=== PATIENT | female | born 1940 | race Caucasian/White ===

== ENCOUNTER → 2016-10-24 | Outpatient (CLI) | payer MEDICARE ==
--- NOTE | 2016-10-25 11:46 | RAD ---
DATE: 10/24/2016 EXAM: DIGITAL SCREEN BILAT W/CAD HISTORY: Screening study. History of left breast cancer. COMPARISON: 10/07/2015 This study was interpreted with the benefit of Computerized Aided Detection (CAD). FINDINGS: Digital MLO and CC mammograms of both breasts were obtained. The breast parenchyma is composed of scattered fibroglandular densities which can obscure a lesion on mammography (breast density code B). Benign-appearing areas of scarring seen involving the left breast, unchanged. Calcifications are seen within both breasts. No spiculated mass is seen. No malignant appearing calcification or new area of architectural distortion is noted. Since the previous examination there has been no significant interval change. IMPRESSION: BI-RADS Category 2 benign findings. There is no mammographic evidence of malignancy. Routine yearly screening mammography is recommended for follow-up. BI-RADS CATEGORY: 2 BENIGN FINDING(S) RECOMMENDED FOLLOW-UP: 12M 12 MONTH FOLLOW-UP PQRS compliance statement: Patient information was entered into a reminder system with a target due date 10/24/2017 for the next mammogram. Mammography is a sensitive method for finding small breast cancers, but it does not detect them all and is not a substitute for careful clinical examination. A negative mammogram does not negate a clinically suspicious finding and should not result in delay in biopsying a clinically suspicious abnormality. "Our facility is accredited by the [employer] Mammography [employer]."
== END | disposition home or self-care (01) ==
LOC: MAMMO 10:31
PROVIDERS: ATTEND Internal Medicine Hematology & Oncology
DX: Z12.31 Encounter for screening mammogram for malignant neoplasm of breast (principal)
CPT/HCPCS: G0202; 77067

== ENCOUNTER → 2017-10-31 | Outpatient (CLI) | payer MEDICARE ==
--- NOTE | 2017-11-01 18:58 | RAD ---
DATE: 10/31/2017 EXAM: MAMMO FIDELIA SCREENING BILATERAL HISTORY: History of left breast cancer. routine screening evaluation. COMPARISON: 10/24/2016, 10/07/2015, 10/07/2014, 10/05/2013 Bilateral CC and MLO views of the breasts were performed. Bilateral breast tomosynthesis was performed in CC and MLO projections. This study was interpreted with the benefit of Computerized Aided Detection (CAD). The breast parenchyma shows scattered fibroglandular densities. Breast parenchyma level B. FINDINGS: Focal asymmetry with associated architectural distortion is seen at the inferior, slightly lateral right breast approximately 12 cm posterior to the nipple. Benign type calcifications are seen. No suspicious left breast masses, microcalcifications or architectural distortion is present to suggest malignancy in either breast. The visualized axillae are unremarkable. IMPRESSION: Right breast focal asymmetry with associated architectural distortion, findings for which additional imaging is advised. BI-RADS CATEGORY: 0 INCOMPLETE: NEEDS ADDITIONAL IMAGING EVALUATION AND/OR PRIOR MAMMOGRAMS FOR COMPARISON. RECOMMENDED FOLLOW-UP: ADD ADDITIONAL IMAGING The patient will be contacted to return for additional imaging to include spot compression CC and MLO views of the right breast as well as breast ultrasound and a supplemental report will follow. PQRS compliance statement: Patient information was entered into a reminder system with a target due date immediate. Mammography is a sensitive method for finding small breast cancers, but it does not detect them all and is not a substitute for careful clinical examination. A negative mammogram does not negate a clinically suspicious finding and should not result in delay in biopsying a clinically suspicious abnormality. "Our facility is accredited by the [employer] Mammography [employer]."
== END | disposition home or self-care (01) ==
LOC: MAMMO 12:16
PROVIDERS: ATTEND Internal Medicine Hematology & Oncology
DX: Z12.31 Encounter for screening mammogram for malignant neoplasm of breast (principal)
CPT/HCPCS: 77063; 77067

== ENCOUNTER → 2017-11-12 | Outpatient (CLI) | payer MEDICARE ==
--- NOTE | 2017-11-12 11:28 | RAD ---
DATE: 11/12/2017 EXAM: DIGITAL DIAGNOSTIC RT, BREAST RIGHT HISTORY: Suspicious screening study COMPARISON: 10/31/2017 This study was interpreted with the benefit of Computerized Aided Detection (CAD). The breast parenchyma shows scattered fibroglandular densities. Breast parenchyma level B. FINDINGS: Additional views confirm the presence of a 12 mm irregularly marginated nodule located far posteriorly and inferiorly at the 5-6:00 location. No associated microcalcifications are seen. Right breast ultrasound, 11/12/2017: A targeted ultrasound exam of the inferior aspect of the right breast was performed. At the 5:30 location approximate 6 cm from the nipple there is a small heterogeneous nodule. Its margins are irregular. There is internal color flow. Posterior acoustic shadowing is seen. The nodule measures 1.1 x 0.8 x 0.6 cm. Sonographic features are suspicious for malignancy. This corresponds in location to the mammographic abnormality. IMPRESSION: Suspicious right breast nodule as described above. Ultrasound-guided biopsy is suggested for further evaluation. Note: The findings were discussed with the patient who understands the recommendation for biopsy. She will follow-up with the ordering physician. BI-RADS CATEGORY: 4 SUSPICIOUS ABNORMALITY- BIOPSY SHOULD BE CONSIDERED RECOMMENDED FOLLOW-UP: BIO BIOPSY RECOMMENDED PQRS compliance statement: Patient information was entered into a reminder system with a target due date for the next mammogram. Mammography is a sensitive method for finding small breast cancers, but it does not detect them all and is not a substitute for careful clinical examination. A negative mammogram does not negate a clinically suspicious finding and should not result in delay in biopsying a clinically suspicious abnormality. "Our facility is accredited by the [employer] Mammography [employer]."
== END | disposition home or self-care (01) ==
LOC: MAMMO 10:01
PROVIDERS: ATTEND Internal Medicine Hematology & Oncology
DX: R92.8 Other abnormal and inconclusive findings on diagnostic imaging of breast (principal); Z85.3 Personal history of malignant neoplasm of breast
CPT/HCPCS: 76641; 77065

== ENCOUNTER → 2017-12-12 | Outpatient (CLI) | payer MEDICARE ==
--- NOTE | 2017-12-13 08:44 | RAD ---
DATE: 12/12/2017 EXAM: DIGITAL DIAGNOSTIC RT HISTORY: The patient has just undergone ultrasound-guided biopsy of a right breast mass. COMPARISON: 11/12/2017 right lateral diagnostic mammographic images This study was interpreted with the benefit of Computerized Aided Detection (CAD ). Breast Density: SCATTERED The breast parenchyma shows scattered fibroglandular densities. Breast parenchyma level B. FINDINGS: Biopsy clip marker is present approximately 0.7 cm posterior to the patient's known mass. Minimal gas about the masses noted consistent with postbiopsy status. No hematoma. IMPRESSION: BI-RADS CATEGORY: 4 SUSPICIOUS ABNORMALITY- BIOPSY SHOULD BE CONSIDERED . Biopsy was performed. Lab results are pending. RECOMMENDED FOLLOW-UP: PQRS compliance statement: Patient information was entered into a reminder system with a target due date for the next mammogram. Mammography is a sensitive method for finding small breast cancers, but it does not detect them all and is not a substitute for careful clinical examination. A negative mammogram does not negate a clinically suspicious finding and should not result in delay in biopsying a clinically suspicious abnormality. "Our facility is accredited by the [employer] Mammography [employer]." MTDD
--- NOTE | 2017-12-13 18:08 | PATHOLOGY ---
[facility] Accession Number: [id number] . 01 Material submitted: . RIGHT BREAST . 01 Clinician provided ICD-10: N63.10 . 01 Clinical history: . Right breast mass . 02 Diagnosis: Breast tissue, right breast mass 5:30, needle biopsies: - Invasive ductal carcinoma, grade 2. See comment. - Ductal carcinoma in situ, solid and cribriform type, intermediate grade. . (JPM:mml; 12/13/17) [facility]/12/13/2017 . 02 Comment: Sections of the right breast mass at 5:30 needle biopsies reveal an invasive mammary carcinoma. The tumor shows moderate tubule formation. Tumor cells are also present in small solid nests and cords, which infiltrate a reactive desmoplastic stroma. The tumor shows moderate nuclear pleomorphism and modest mitotic activity. There is focal intermediate grade ductal carcinoma in situ, solid and cribriform type. The invasive carcinoma measures up to 0.6-0.7 cm in greatest dimension on the glass slide. There are tumor-associated calcifications. There is no lymphovascular tumor invasion. Breast prognostic studies will be obtained, the results of which will be reported separately. The case is also examined by Dr. Rach Gupta, who concurs with the diagnosis. . (JPM:mml; 12/13/17) . 02 Electronically signed: . Tom Betancourt MD, Pathologist NPI- [id number] . 01 Gross description: . Received in formalin labeled "Malika Espinosa, right breast," and additionally labeled on the requisition as "5:30, 6 cm FN," are multiple needle cores of yellow-renee fibrofatty tissue measuring 1.2 x 0.6 x 0.2 cm in aggregate dimensions. The tissue submitted in its entirety in cassette A1 through A3. The cold ischemic time is 10 minutes. The total formalin fixation time is 8 hours and 40 minutes. (TSD; 12/12/2017) TOB/TOB . 02 Pathologist provided ICD-10: C50.911, D05.11 . 02 CPT . 349946 Specimen Comment: A courtesy copy of this report has been sent to Specimen Comment: [phone], , . Specimen Comment: Report sent to , and Specimen Comment: A duplicate report has been generated due to demographic updates. Performed at: 01 [facility] [address] [facility] [address], [place] [id number] MD Kel Bernardo MD Phone: [phone] Performed at: 02 [facility] [address] [place] [id number] MD Tom Betancourt MD Phone: [phone]
== END | disposition home or self-care (01) ==
LOC: US 12:05
PROVIDERS: ATTEND Surgery
DX: C50.911 Malignant neoplasm of unspecified site of right female breast (principal)
CPT/HCPCS: 19083; 77065; 88305; 88361; C1713; 19081; 76942

== ENCOUNTER 2017-12-31 07:33 | Observation (INO) | payer MEDICARE ==
[2017-12-31] VITALS (8 sets, daily range): BP systolic 119–145; BP diastolic 35–58
[~2017-12-31] VITALS: Ht 157.5 cm; Wt 79.4 kg
[~2017-12-31 07:33] MED LIST: AMLO5TAB7 PO; ASPI-630 PO; BENA40TA3 PO; CALC-178 PO; CHOL500016 PO; HYDROmorphone 2 MG/ML VIAL IV PRN; INSU100I17 SQ; INSU300I3 SQ; IV RINGERS,LACTATED 1000ML 1,000 ML IV SCH; LEVO75TA5 PO; LIDOCAINE 1% PF 2 ML VIAL. ID PRN; METF10007 PO; MORPHINE SULFATE 2 MG/ML VIAL. IV PRN; ONDANSETRON PF 4 MG/2 ML VIAL. IV PRN; PROCHLORPERAZINE 10 MG/2 ML VIAL. IV PRN; SIMV40TA3 PO; fentaNYL PF VIAL 100 MCG/2 ML VIAL IV PRN
[2017-12-31] MEDS ORDERED: LIDOCAINE WITH 8.4% SOD BICARB 3 ML DISP.SYRIN. INJ ONE (08:30)
[2017-12-31] MEDS ORDERED: INSULIN REGULAR 100 UNIT/ML 3ML VIAL. SQ ONE (08:45)
[2017-12-31] MEDS ORDERED: INSULIN REGULAR 100 UNIT/ML 3ML VIAL. IV ONE (08:45)
[2017-12-31] MEDS ORDERED: ISOSULFAN BLUE 50 MG/5 ML VIAL. SQ ONE (09:10)
[2017-12-31] MEDS ORDERED: DEXAMETHASONE SOD PHOS 20 MG/5 ML VIAL. ONE (10:41)
[2017-12-31] MEDS ORDERED: ONDANSETRON PF 4 MG/2 ML VIAL. ONE (10:41)
[2017-12-31] MEDS ORDERED: fentaNYL PF VIAL 100 MCG/2 ML VIAL ONE ×2 (10:41→13:09)
[2017-12-31] MEDS ORDERED: LIDOCAINE 2% PF Vial for OR 5 ML VIAL. ONE (10:41)
[2017-12-31] MEDS ORDERED: PROPOFOL 20 ML IV ONE ×2 (10:41→11:54)
--- NOTE | 2017-12-31 11:08 | RAD ---
ULTRASOUND-GUIDED NEEDLE LOCALIZATION OF THE RIGHT BREAST Indications: Right breast cancer. Nodule at the 5:30 position 6 cm from the nipple. Procedure: Sonography of the right breast was performed which demonstrated the nodule in question at the 5:30 position 6 cm from the nipple. Biopsy clip was identified adjacent to it as well. An appropriate skin josephine was made. The procedure and possible complications including bleeding and infection were explained. The patient provided both verbal and written consent. A timeout was performed which confirmed the name of the patient and date of and the type of procedure and the side of the procedure. Allergies to medications were reviewed. The patient's questions were answered. The right breast was prepped and draped in the usual sterile fashion. A total of 3 cc of 1% lidocaine was utilized for local anesthesia. Using sterile technique and ultrasound guidance, 20-gauge Kopans needle cannula was directed through the nodule to the biopsy clip. The wire was set in place and the needle cannula was removed. Sonographic spot images were obtained. Hemostasis was deemed adequate. Sterile bandage was applied to the area covering the wire extending outside the right breast. The patient tolerated the procedure well without complication. IMPRESSION: Ultrasound-guided needle localization of the right breast was performed without complication. DIAGNOSTIC RIGHT-SIDED MAMMOGRAPHY: 2-D digital CC and MLO mammographic views of the right breast were performed. The wire is seen extending through the nodule and deep to the nodule and biopsy clip. The tip of the wire is located 2 cm deep to the nodule. These findings were conveyed to Dr. Curtis prior to surgery. IMPRESSION: Diagnostic mammogram of the right breast was performed prior to surgery demonstrating the position of the wire hook to the nodule.
[2017-12-31] MEDS ORDERED: SCOPOLAMINE 1.5MG PATCH. TD ONE (11:10)
--- NOTE | 2017-12-31 11:40 | RAD ---
SENTINEL LYMPH NODE INJECTION OF THE RIGHT BREAST Clinical indications: Right breast cancer. Procedure: A timeout was performed which confirmed the name of the patient and date of and the type of procedure and the side of the procedure. The periareolar region of the right breast was cleansed with Betadine. Topical anesthetic spurring was utilized. Using sterile technique, 4 separate subcutaneous injections were performed at the 12:00 and 3:00 and 6:00 and 9:00 positions of the periareolar region of the right breast using a 1.4 cc solution containing 1.0 mCi of filtered sulfur colloid. Hemostasis was deemed adequate and the patient tolerated the procedure well without complication. No images were obtained. The patient was sent to the operating holding area. IMPRESSION: Sulligent lymph node injection of the right breast was performed.
[2017-12-31] MEDS ORDERED: ePHEDrine PF IN SALINE 50 MG/5 ML DISP.SYRIN IV ONE (11:54)
[2017-12-31] MEDS ORDERED: PHENYLEPHRINE in 0.9% NACL PF 1 MG/10 ML SYRINGE. IV ONE (11:54)
[2017-12-31] MEDS: IV 1/2 NORMAL SALINE 1,000 ML IV SCH (12:56)
--- NOTE | 2017-12-31 12:56 | PDOC4 ---
Operative Note Operative Note Operative Note: Preoperative Diagnosis: Right breast cancer Postoperative Diagnosis: Same Procedure: Right segmental mastectomy with needle localization, right axillary sentinel lymph node biopsy Surgeon: Ever Coremaker Apprentice: Susan Mejia Anesthesia: Gen. EBL: 25 ml Specimen: [place] lymph node #1, blue, not hot; axillary lymph node ( nonsentinel); R lumpectomy, short stitch superficial, long stitch lateral, additional margins (lateral, medial, superior) Drains: None Complications: None Indication: The patient is a 77-year-old female who is recently diagnosed with right breast cancer. She is interested in breast conservation and appears to be an appropriate candidate. The plan is to proceed with a right segmental mastectomy with needle localization and axillary sentinel lymph node biopsy. The details and risks of surgery were discussed with the patient at length. The risks include bleeding, infection, pain, scar tissue, wound healing problems, anesthetic risk, potential need for additional surgery or procedure particularly pending pathology results. She understands and would like to proceed. Description: The patient was taken initially to radiology where she underwent both needle localization and injection of technetium sulfur colloid. He was then taken to the operating room. Gen. anesthesia was performed. The right breast and axilla were prepped with ChloraPrep and draped in a standard surgical manner. 5 mL of Lymphazurin were injected deep to the nipple areolar complex. Several minutes were allowed to elapse. An incision was made in the skin lines of the right axilla. Cautery dissection was carried down to the axillary tissues. Using the radio guided probe I was unable to identify a significant area of increased uptake. It seemed as though the radionuclide injection was not taken into the lymph node. Further inspection however did show a blue staining lymph node corresponding to a sentinel node. This lymph node was harvested and sent as a specimen labeled sentinel lymph node #1. Additional palpation showed another lymph node that appeared somewhat enlarged. It did not show blue staining nor increased nuclear uptake. We elected to harvest this however due to its size, and it was evaluated by pathology. Both lymph nodes showed no evidence of metastasis. Further inspection of the axilla showed no other abnormal palpable nodes or areas of blue staining or increased nuclear uptake. We then proceeded with the lumpectomy. The wire exited the skin in the inferior medial aspect of the breast. With a scalpel an incision was made along the inferior aspect of the breast adjacent to the wire in the expected direction of its trajectory. Cautery dissection was carried down into the breast parenchyma. The wire was identified and followed to its termination. A generous lumpectomy specimen was then performed mobilizing the breast tissue surrounding the distal portion of the wire. Cautery was used for this dissection and all blood vessels were readily controlled. The lumpectomy was then fully excised and a short stitch josephine the superficial margin and long stitch josephine the lateral margin. The lumpectomy specimen was sent to radiology where specimen radiographs confirmed the presence of the clip and distal portion of the wire. We elected to remove additional margins along the lateral , medial, and superior borders of the cavity. These were sent to pathology as well. Hemostasis was readily achieved with cautery and no other abnormalities were seen. The subcutaneous tissue of both incision sites was closed with 3-0 Vicryl. The skin was approximated with 4-0 Monocryl. Sterile dressings were then applied. The patient tolerated the procedure well and was sent to the recovery room in stable condition. At the end of the case all counts were correct. FOX HUSSEIN MD Dec 31, 2017 12:56
[2017-12-31] MEDS ORDERED: 0.9 % SODIUM CHLORIDE 10 ML DISP.SYRIN. IV PRN (13:00)
[2017-12-31] MEDS ORDERED: MORPHINE SULFATE 2 MG/ML VIAL. IV PRN ×2 (13:00→15:00)
[2017-12-31] MEDS ORDERED: ONDANSETRON PF 4 MG/2 ML VIAL. IV PRN ×2 (13:00→15:00)
[2017-12-31] MEDS ORDERED: HYDROcodone/APAP 5/325MG 1 TAB TABLET PO PRN ×2 (13:00)
[2017-12-31] MEDS ORDERED: PROCHLORPERAZINE 10 MG/2 ML VIAL. ONE (13:16)
--- NOTE | 2017-12-31 13:17 | RAD ---
RIGHT BREAST SURGICAL SPECIMEN Indications: Right breast nodule. Right breast cancer. Lumpectomy. Findings: Radiograph of the surgical specimen of the right breast was performed which demonstrates the wire and biopsy clip within the central aspect of the specimen. Along the shaft of the wire, a spiculated lesion is seen at the E-F 9-10 level. IMPRESSION: Surgical specimen radiograph demonstrates a spiculated lesion within the specimen.
--- NOTE | 2017-12-31 14:50 | PDOC2 ---
CONSULT Date of Consult Date of Consult DATE: 12/31/17 TIME: 14:43 Reason for Consult Reason for Consult: IM managment post sx Referring Physician Referring Physician: dr. Curtis Identification/Chief Complaint Chief Complaint rt BCa Source Source: Chart review, Patient History of Present Illness Reason for Visit: 77yo F, with h/o left BCa s/p sx and chemo, RT 15ys ago, got selective Rt BCa sx today. pt's recent Mammogram showed abnormality, bx 11/2017 + invasive ductal Ca. got Right segmental mastectomy with needle localization, right axillary sentinel lymph node biopsy today. Pt feels fine, no pain, no fever, chills, sob, chest pain. has onco appt next month. Past Medical History Past Medical History Left BCa Cardiovascular: HTN Endocrine: Diabetes, Hypothyroidism Past Surgical History Past Surgical History left breast Lumpectomy for bca Family History Family History: Cancer Social History No ALCOHOL: none Drugs: None Lives: with Family Domestic Violence: Neg Current Medications Current Medications Current Medications Cefazolin Sodium/ Dextrose 50 ml @ 100 mls/hr 1X PREOP PRN IV PRIOR TO PROCEDURE Last administered on 12/31/17at 11:07; Start 12/31/17 at 06:00; Stop 12/31/17 at 18:00 Ondansetron HCl (Zofran) 4 mg PRN Q6HRS PRN IV NAUSEA/VOMITING; Start at 07:00; Stop 01/01/18 at 06:59 Fentanyl Citrate (Fentanyl 2ml Vial) 25 mcg PRN Q5MIN PRN IV MILD PAIN; Start 12/31/17 at 07:00; Stop 01/01/18 at 06:59 Fentanyl Citrate (Fentanyl 2ml Vial) 50 mcg PRN Q5MIN PRN IV MODERATE TO SEVERE PAIN Last administered on 12/31/17at 13:14; Start 12/31/17 at 07:00; Stop 01/01/18 at 06:59 Morphine Sulfate (Morphine Sulfate) 1 mg PRN Q10MIN PRN IV SEVERE PAIN; Start 12/31/17 at 07:00; Stop 01/01/18 at 06:59 Ringer's Solution 1,000 ml @ 30 mls/hr Q24H IV Last administered on at 08:30; Start 12/31/17 at 07:00; Stop 12/31/17 at 18:59 Lidocaine HCl (Xylocaine-Mpf 1% 2ml Vial) 2 ml PRN 1X PRN ID PRIOR TO IV START ; Start 12/31/17 at 07:00; Stop 01/01/18 at 06:59 Hydromorphone HCl (Dilaudid) 0.5 mg PRN Q10MIN PRN IV SEV PAIN, Second choice; Start 12/31/17 at 07:00; Stop 01/01/18 at 06:59 Prochlorperazine Edisylate (Compazine) 5 mg PACU PRN PRN IV NAUSEA, MRX1 Last administered on 12/31/17at 13:19; Start 12/31/17 at 07:00; Stop 01/01/18 at 06 :59 Lidocaine/Sodium Bicarbonate (Buffered Lidocaine 1%) 3 ml 1X ONCE INJ ; Start 12/31/17 at 08:30; Stop 12/31/17 at 08:31; Status DC Insulin Human Regular (HumuLIN R VIAL) 5 unit 1X ONCE IV ; Start 12/31/17 at 08:45; Stop 12/31/17 at 08:46; Status Cancel Insulin Human Regular (HumuLIN R VIAL) 5 unit 1X ONCE SQ Last administered on 12/31/17at 08:56; Start 12/31/17 at 08:45; Stop 12/31/17 at 08:46; Status DC Isosulfan Blue (Isosulfan Blue) 50 mg STK-MED ONCE SQ Last administered on at 11:35; Start 12/31/17 at 09:10; Stop 12/31/17 at 10:10; Status DC Propofol 20 ml @ As Directed STK-MED ONCE IV ; Start 12/31/17 at 10:41; Stop 12/31/17 at 10:42; Status DC Dexamethasone Sodium Phosphate (Decadron) 20 mg STK-MED ONCE .ROUTE ; Start at 10:41; Stop 12/31/17 at 10:42; Status DC Lidocaine HCl (Lidocaine Pf 2% Vial) 5 ml STK-MED ONCE .ROUTE ; Start 12/31/17 at 10:41; Stop 12/31/17 at 10:42; Status DC Ondansetron HCl (Zofran) 4 mg STK-MED ONCE .ROUTE ; Start 12/31/17 at 10:41; Stop 12/31/17 at 10:42; Status DC Fentanyl Citrate (Fentanyl 2ml Vial) 100 mcg STK-MED ONCE .ROUTE ; Start at 10:41; Stop 12/31/17 at 10:42; Status DC Scopolamine (Transderm-Scop) 1 patch STK-MED ONCE TD ; Start 12/31/17 at 11:10 ; Stop 12/31/17 at 11:11; Status DC Propofol 20 ml @ As Directed STK-MED ONCE IV ; Start 12/31/17 at 11:54; Stop 12/31/17 at 11:55; Status DC Phenylephrine HCl (PHENYLEPHRINE in 0.9% NACL PF) 1 mg STK-MED ONCE IV ; Start 12/31/17 at 11:54; Stop 12/31/17 at 11:55; Status DC Ephedrine Sulfate (ePHEDrine PF IN SALINE SYRINGE) 50 mg STK-MED ONCE IV ; Start 12/31/17 at 11:54; Stop 12/31/17 at 11:55; Status DC Sodium Chloride (Normal Saline Flush) 3 ml QSHIFT PRN IV AFTER MEDS AND BLOOD DRAWS; Start 12/31/17 at 13:00 Sodium Chloride 1,000 ml @ 75 mls/hr [id number] IV ; Start 12/31/17 at 12:56 Acetaminophen/ Hydrocodone Bitart (Lortab 5/325) 1 tab PRN Q4HRS PRN PO MILD PAIN; Start 12/31/17 at 13:00 Acetaminophen/ Hydrocodone Bitart (Lortab 5/325) 2 tab PRN Q4HRS PRN PO MODERATE PAIN, SEVERE PAIN; Start 12/31/17 at 13:00 Morphine Sulfate (Morphine Sulfate) 1 mg PRN Q1HR PRN IV PAIN MILD; Start at 13:00 Ondansetron HCl (Zofran) 4 mg PRN Q6HRS PRN IV NAUESA, 1ST CHOICE; Start 12/31 at 13:00 Amlodipine Besylate (Norvasc) 5 mg DAILY PO ; Start 01/01/18 at 09:00 Aspirin (Children'S Aspirin) 81 mg QEVNG PO ; Start 12/31/17 at 18:00 Levothyroxine Sodium (Synthroid) 75 mcg DAILY07 PO ; Start 01/01/18 at 07:00 Lisinopril (Prinivil) 40 mg DAILY PO ; Start 01/01/18 at 09:00 Calcium/Vitamin D (Oscal D 500mg/ 200uts) 2 tab QEVNG PO ; Start 12/31/17 at 18 :00 Vitamin D (Vitamin D3) 1,000 unit QEVNG PO ; Start 12/31/17 at 18:00 Insulin Human Lispro (HumaLOG) 4 units BIDACBL SQ ; Start 12/31/17 at 17:00 Insulin Human Lispro (HumaLOG) 9 units DAILYBFRSUP SQ ; Start 12/31/17 at 17:00 Insulin Glargine (Lantus) 14 units QHS SQ ; Start 12/31/17 at 21:00 Metformin HCl (Glucophage) 1,000 mg BIDWMEALS PO ; Start 12/31/17 at 17:00 Atorvastatin Calcium (Lipitor) 20 mg QHS PO ; Start 12/31/17 at 21:00 Fentanyl Citrate (Fentanyl 2ml Vial) 100 mcg STK-MED ONCE .ROUTE ; Start at 13:09; Stop 12/31/17 at 13:10; Status DC Prochlorperazine Edisylate (Compazine) 10 mg STK-MED ONCE .ROUTE ; Start at 13:16; Stop 12/31/17 at 13:17; Status DC Active Scripts Active Reported Metformin Hcl 1,000 Mg Tablet 1,000 Mg PO BIDWMEALS Toujeo Max Solostar (Insulin Glargine,Hum.rec.anlog) 300 Unit/1 Ml Insuln.pen 14 Unit SQ QHS Novolog Flexpen (Insulin Aspart) 100 Unit/1 Ml Insuln.pen 9 Unit SQ DAILYBFRSUP Novolog Flexpen (Insulin Aspart) 100 Unit/1 Ml Insuln.pen 4 Unit SQ BIDACBL Vitamin D3 (Cholecalciferol (Vitamin D3)) 5,000 Unit Tablet 1 Tab PO QEVNG Calcium 1,000 + D3 Caplet (Calcium Carbonate/Vitamin D3) 1 Each Tablet 1 Each PO QEVNG Aspirin 81 Mg Tab.chew 1 Tab PO QEVNG Simvastatin 40 Mg Tablet 1 Tab PO QHS Levothyroxine Sodium 75 Mcg Tablet 1 Tab PO DAILY Benazepril Hcl 40 Mg Tablet 1 Tab PO DAILY Amlodipine Besylate 5 Mg Tablet 5 Mg PO DAILY Allergies Allergies: Coded Allergies: adhesive tape (Verified Allergy, Unknown, BROKE OUT & ITCHING, 12/31/17) Physical Exam Physical Exam rt Breast has clean sx wound ,no tenderness. General: Alert, Oriented X3, Cooperative HEENT: Atraumatic, PERRLA Lungs: Clear to auscultation Heart: Regular rate, Normal S1, Normal S2 Abdomen: Normal bowel sounds, Soft Extremities: No clubbing, No cyanosis Skin: No rashes Neuro: Normal speech Psych/Mental Status: Mental status NL MUSCULOSKELETAL: No joint tenderness, No deformity Vitals VITALS Vital Signs Date Time Temp Pulse Resp B/P (MAP) Pulse Ox O2 Delivery O2 Flow Rate FiO2 12/31/17 14:00 97.2 68 12 112/57 97 Room Air 97.2 12/31/17 13:30 10 Labs Labs Laboratory Tests Test 12/31/17 08:27 12/31/17 13:25 Glucose (Fingerstick) 264 mg/dL (70-99) 139 mg/dL (70-99) Laboratory Tests Test 12/31/17 08:27 12/31/17 13:25 Glucose (Fingerstick) 264 mg/dL (70-99) 139 mg/dL (70-99) Assessment/Plan Assessment/Plan Rt invasive ductal Ca s/p Right segmental mastectomy and right axillary sentinel lymph node biopsy 12/31 h/o Left BCa s/p lumpectomy, chemo, RT HTN DM2 Hypothyroidism chronic left arm lymphedema post left axillary lympectomy morbid obesity plan: fu with sx, pain control as needed cont home meds slightly decrease insulin, ssi advance diet as tolerated labs tmr IVF with sx pt has onco appt next month thanks for asking TH for consult RORY MICHAEL MD Dec 31, 2017 14:50
[2017-12-31] MEDS ORDERED: traMADol 50 MG TABLET PO PRN (15:00)
[2017-12-31] MEDS ORDERED: ACETAMINOPHEN 325 MG TABLET. PO PRN (15:00)
[2017-12-31] MEDS ORDERED: INSULIN LISPRO 300 UNITS/3 ML INSULN.PEN. SQ SCH ×2 (17:00)
[2017-12-31] MEDS: metFORMIN 500 MG TABLET PO SCH (17:20)
[2017-12-31] MEDS: CHOLECALCIFEROL (VITAMIN D3) 1,000 UNIT TABLET PO SCH (17:24)
[2017-12-31] MEDS: CALCIUM CARB/VIT D3 500/200 TABLET. PO SCH (17:24)
[2017-12-31] MEDS: ASPIRIN CHEWABLE 81 MG TABLET. PO SCH (17:24)
[2017-12-31] MEDS ORDERED: INSULIN GLARGINE 300 UNITS/3 ML INSULN.PEN. SQ SCH (21:00)
[2017-12-31] MEDS: ATORVASTATIN CALCIUM 20 MG TABLET PO SCH (21:06)
[2017-12-31] MEDS: INSULIN GLARGINE 300 UNITS/3 ML INSULN.PEN. SQ SCH (21:15)
[2018-01-01] VITALS (7 sets, daily range): BP systolic 96–123; BP diastolic 34–46
[2018-01-01] MEDS: IV 1/2 NORMAL SALINE 1,000 ML IV SCH ×2 (02:16→15:36)
[2018-01-01 07:18] LABS: BASO % 0 % (0-3); EOS % 0 % (0-3); HEMATOCRIT 33.8 % (36.0-47.0); HEMOGLOBIN 11.7 g/dL (12.0-15.5); LYMPH # 1.1 x10^3/uL (1.0-4.8); LYMPH % 10 % (24-48); MEAN CORPUSCULAR HEMOGLOBIN 33 pg (25-35); MEAN CORPUSCULAR HGB CONC 35 g/dL (31-37); MEAN CORPUSCULAR VOLUME 95 fL (79-100); MONO # 0.9 x10^3/uL (0.0-1.1); MONO % 9 % (0-9); NEUT # 8.3 x10^3uL (1.8-7.7); NEUT % 81 % (31-73); PLATELET COUNT 217 x10^3/uL (140-400); RED BLOOD COUNT 3.57 x10^6/uL (3.50-5.40); WHITE BLOOD COUNT 10.3 x10^3/uL (4.0-11.0)
[2018-01-01 07:46] LABS: CALCIUM 9.2 mg/dL (8.5-10.1); CREATININE 1.2 mg/dL (0.6-1.0); GFR 43.8
[2018-01-01] MEDS ORDERED: INSULIN LISPRO 300 UNITS/3 ML INSULN.PEN. SQ ONE ×4 (08:15→17:00)
[2018-01-01] MEDS ORDERED: DEXTROSE 50% 25 GM / 50ML DISP.SYRIN. IV PRN (08:15)
--- NOTE | 2018-01-01 08:21 | PDOC ---
PROGRESS NOTES Subjective Subjective feels well, no significant pain Objective Objective Vital Signs Date Time Temp Pulse Resp B/P (MAP) Pulse Ox O2 Delivery O2 Flow Rate FiO2 01/01/18 07:05 98.5 85 17 96/34 (54) 96 Room Air 98.5 12/31/17 13:30 10 Intake and Output 01/01/18 07:00 Intake Total 1370 ml Output Total 25 ml Balance 1345 ml Intake Oral 20 ml IV Total 1350 ml Output Estimated Blood Loss 25 ml # Voids 4 Physical Exam Physical Exam dressings clean and dry Assessment Assessment POD 1 seg mastectomy, sentinel lymph node biopsy Plan Plan of Care Stable from surgery standpoint, however blood sugars over 400; need to have that improved prior to discharge, appreciate Medicine assistance Comment Review of Relevant I have reviewed the following items josephine (where applicable) has been applied. Labs Laboratory Tests Test 12/31/17 08:27 12/31/17 13:25 12/31/17 16:53 12/31/17 21:00 Glucose (Fingerstick) 264 mg/dL (70-99) 139 mg/dL (70-99) 179 mg/dL (70-99) 317 mg/dL (70-99) Test 01/01/18 06:45 01/01/18 07:09 White Blood Count 10.3 x10^3/uL (4.0-11.0) Red Blood Count 3.57 x10^6/uL (3.50-5.40) Hemoglobin 11.7 g/dL (12.0-15.5) Hematocrit 33.8 % (36.0-47.0) Mean Corpuscular Volume 95 fL (79-100) Mean Corpuscular Hemoglobin 33 pg (25-35) Mean Corpuscular Hemoglobin Concent 35 g/dL (31-37) Red Cell Distribution Width 13.0 % (11.5-14.5) Platelet Count 217 x10^3/uL (140-400) Neutrophils (%) (Auto) 81 % (31-73) Lymphocytes (%) (Auto) 10 % (24-48) Monocytes (%) (Auto) 9 % (0-9) Eosinophils (%) (Auto) 0 % (0-3) Basophils (%) (Auto) 0 % (0-3) Neutrophils # (Auto) 8.3 x10^3uL (1.8-7.7) Lymphocytes # (Auto) 1.1 x10^3/uL (1.0-4.8) Monocytes # (Auto) 0.9 x10^3/uL (0.0-1.1) Eosinophils # (Auto) 0.0 x10^3/uL (0.0-0.7) Basophils # (Auto) 0.0 x10^3/uL (0.0-0.2) Sodium Level 135 mmol/L (136-145) Potassium Level 5.0 mmol/L (3.5-5.1) Chloride Level 100 mmol/L (98-107) Carbon Dioxide Level 20 mmol/L (21-32) Anion Gap 15 (6-14) Blood Urea Nitrogen 23 mg/dL (7-20) Creatinine 1.2 mg/dL (0.6-1.0) Estimated GFR (Cockcroft-Gault) 43.8 Glucose Level 484 mg/dL (70-99) Calcium Level 9.2 mg/dL (8.5-10.1) Glucose (Fingerstick) 423 mg/dL (70-99) Laboratory Tests Test 12/31/17 08:27 12/31/17 13:25 12/31/17 16:53 12/31/17 21:00 Glucose (Fingerstick) 264 mg/dL (70-99) 139 mg/dL (70-99) 179 mg/dL (70-99) 317 mg/dL (70-99) Test 01/01/18 06:45 01/01/18 07:09 White Blood Count 10.3 x10^3/uL (4.0-11.0) Red Blood Count 3.57 x10^6/uL (3.50-5.40) Hemoglobin 11.7 g/dL (12.0-15.5) Hematocrit 33.8 % (36.0-47.0) Mean Corpuscular Volume 95 fL (79-100) Mean Corpuscular Hemoglobin 33 pg (25-35) Mean Corpuscular Hemoglobin Concent 35 g/dL (31-37) Red Cell Distribution Width 13.0 % (11.5-14.5) Platelet Count 217 x10^3/uL (140-400) Neutrophils (%) (Auto) 81 % (31-73) Lymphocytes (%) (Auto) 10 % (24-48) Monocytes (%) (Auto) 9 % (0-9) Eosinophils (%) (Auto) 0 % (0-3) Basophils (%) (Auto) 0 % (0-3) Neutrophils # (Auto) 8.3 x10^3uL (1.8-7.7) Lymphocytes # (Auto) 1.1 x10^3/uL (1.0-4.8) Monocytes # (Auto) 0.9 x10^3/uL (0.0-1.1) Eosinophils # (Auto) 0.0 x10^3/uL (0.0-0.7) Basophils # (Auto) 0.0 x10^3/uL (0.0-0.2) Sodium Level 135 mmol/L (136-145) Potassium Level 5.0 mmol/L (3.5-5.1) Chloride Level 100 mmol/L (98-107) Carbon Dioxide Level 20 mmol/L (21-32) Anion Gap 15 (6-14) Blood Urea Nitrogen 23 mg/dL (7-20) Creatinine 1.2 mg/dL (0.6-1.0) Estimated GFR (Cockcroft-Gault) 43.8 Glucose Level 484 mg/dL (70-99) Calcium Level 9.2 mg/dL (8.5-10.1) Glucose (Fingerstick) 423 mg/dL (70-99) Medications Current Medications Cefazolin Sodium/ Dextrose 50 ml @ 100 mls/hr 1X PREOP PRN IV PRIOR TO PROCEDURE Last administered on 12/31/17at 11:07; Start 12/31/17 at 06:00; Stop 12/31/17 at 18:00; Status DC Ondansetron HCl (Zofran) 4 mg PRN Q6HRS PRN IV NAUSEA/VOMITING; Start at 07:00; Stop 01/01/18 at 06:59; Status DC Fentanyl Citrate (Fentanyl 2ml Vial) 25 mcg PRN Q5MIN PRN IV MILD PAIN; Start 12/31/17 at 07:00; Stop 01/01/18 at 06:59; Status DC Fentanyl Citrate (Fentanyl 2ml Vial) 50 mcg PRN Q5MIN PRN IV MODERATE TO SEVERE PAIN Last administered on 12/31/17at 13:14; Start 12/31/17 at 07:00; Stop 01/01/18 at 06:59; Status DC Morphine Sulfate (Morphine Sulfate) 1 mg PRN Q10MIN PRN IV SEVERE PAIN; Start 12/31/17 at 07:00; Stop 01/01/18 at 06:59; Status DC Ringer's Solution 1,000 ml @ 30 mls/hr Q24H IV Last administered on at 08:30; Start 12/31/17 at 07:00; Stop 12/31/17 at 18:59; Status DC Lidocaine HCl (Xylocaine-Mpf 1% 2ml Vial) 2 ml PRN 1X PRN ID PRIOR TO IV START ; Start 12/31/17 at 07:00; Stop 01/01/18 at 06:59; Status DC Hydromorphone HCl (Dilaudid) 0.5 mg PRN Q10MIN PRN IV SEV PAIN, Second choice; Start 12/31/17 at 07:00; Stop 01/01/18 at 06:59; Status DC Prochlorperazine Edisylate (Compazine) 5 mg PACU PRN PRN IV NAUSEA, MRX1 Last administered on 12/31/17at 13:19; Start 12/31/17 at 07:00; Stop 01/01/18 at 06 :59; Status DC Lidocaine/Sodium Bicarbonate (Buffered Lidocaine 1%) 3 ml 1X ONCE INJ ; Start 12/31/17 at 08:30; Stop 01/01/18 at 07:56; Status DC Insulin Human Regular (HumuLIN R VIAL) 5 unit 1X ONCE IV ; Start 12/31/17 at 08:45; Stop 12/31/17 at 08:46; Status Cancel Insulin Human Regular (HumuLIN R VIAL) 5 unit 1X ONCE SQ Last administered on 12/31/17at 08:56; Start 12/31/17 at 08:45; Stop 01/01/18 at 07:56; Status DC Isosulfan Blue (Isosulfan Blue) 50 mg STK-MED ONCE SQ Last administered on at 11:35; Start 12/31/17 at 09:10; Stop 01/01/18 at 07:56; Status DC Propofol 20 ml @ As Directed STK-MED ONCE IV ; Start 12/31/17 at 10:41; Stop 01/01/18 at 08:12; Status DC Dexamethasone Sodium Phosphate (Decadron) 20 mg STK-MED ONCE .ROUTE ; Start at 10:41; Stop 01/01/18 at 08:12; Status DC Lidocaine HCl (Lidocaine Pf 2% Vial) 5 ml STK-MED ONCE .ROUTE ; Start 12/31/17 at 10:41; Stop 01/01/18 at 07:56; Status DC Ondansetron HCl (Zofran) 4 mg STK-MED ONCE .ROUTE ; Start 12/31/17 at 10:41; Stop 01/01/18 at 07:56; Status DC Fentanyl Citrate (Fentanyl 2ml Vial) 100 mcg STK-MED ONCE .ROUTE ; Start at 10:41; Stop 01/01/18 at 08:12; Status DC Scopolamine (Transderm-Scop) 1 patch STK-MED ONCE TD ; Start 12/31/17 at 11:10 ; Stop 01/01/18 at 07:56; Status DC Propofol 20 ml @ As Directed STK-MED ONCE IV ; Start 12/31/17 at 11:54; Stop 01/01/18 at 08:12; Status DC Phenylephrine HCl (PHENYLEPHRINE in 0.9% NACL PF) 1 mg STK-MED ONCE IV ; Start 12/31/17 at 11:54; Stop 01/01/18 at 07:56; Status DC Ephedrine Sulfate (ePHEDrine PF IN SALINE SYRINGE) 50 mg STK-MED ONCE IV ; Start 12/31/17 at 11:54; Stop 01/01/18 at 08:12; Status DC Sodium Chloride (Normal Saline Flush) 3 ml QSHIFT PRN IV AFTER MEDS AND BLOOD DRAWS; Start 12/31/17 at 13:00 Sodium Chloride 1,000 ml @ 75 mls/hr [id number] IV ; Start 12/31/17 at 12:56 Acetaminophen/ Hydrocodone Bitart (Lortab 5/325) 1 tab PRN Q4HRS PRN PO MODERATE PAIN; Start 12/31/17 at 13:00 Acetaminophen/ Hydrocodone Bitart (Lortab 5/325) 2 tab PRN Q4HRS PRN PO SEVERE PAIN; Start 12/31/17 at 13:00 Morphine Sulfate (Morphine Sulfate) 1 mg PRN Q1HR PRN IV PAIN MILD; Start at 13:00 Ondansetron HCl (Zofran) 4 mg PRN Q6HRS PRN IV NAUESA, 1ST CHOICE; Start 12/31 at 13:00 Amlodipine Besylate (Norvasc) 5 mg DAILY PO ; Start 01/01/18 at 09:00 Aspirin (Children'S Aspirin) 81 mg QEVNG PO ; Start 12/31/17 at 18:00 Levothyroxine Sodium (Synthroid) 75 mcg DAILY07 PO ; Start 01/01/18 at 07:00 Lisinopril (Prinivil) 40 mg DAILY PO ; Start 01/01/18 at 09:00 Calcium/Vitamin D (Oscal D 500mg/ 200uts) 2 tab QEVNG PO ; Start 12/31/17 at 18 :00 Vitamin D (Vitamin D3) 1,000 unit QEVNG PO ; Start 12/31/17 at 18:00 Insulin Human Lispro (HumaLOG) 4 units BIDACBL SQ ; Start 12/31/17 at 17:00; Stop 12/31/17 at 17:00; Status DC Insulin Human Lispro (HumaLOG) 9 units DAILYBFRSUP SQ ; Start 12/31/17 at 17:00 ; Stop 12/31/17 at 17:00; Status DC Insulin Glargine (Lantus) 14 units QHS SQ ; Start 12/31/17 at 21:00; Stop at 21:00; Status DC Metformin HCl (Glucophage) 1,000 mg BIDWMEALS PO Last administered on at 17:20; Start 12/31/17 at 17:00 Atorvastatin Calcium (Lipitor) 20 mg QHS PO Last administered on 12/31/17at 21: 06; Start 12/31/17 at 21:00 Fentanyl Citrate (Fentanyl 2ml Vial) 100 mcg STK-MED ONCE .ROUTE ; Start at 13:09; Stop 01/01/18 at 08:12; Status DC Prochlorperazine Edisylate (Compazine) 10 mg STK-MED ONCE .ROUTE ; Start at 13:16; Stop 01/01/18 at 07:56; Status DC Insulin Glargine (Lantus) 10 units QHS SQ Last administered on 12/31/17at 21:15 ; Start 12/31/17 at 21:00 Acetaminophen (Tylenol) 650 mg PRN Q6HRS PRN PO FEVER; Start 12/31/17 at 15:00 ; Stop 01/01/18 at 08:12; Status DC Ondansetron HCl (Zofran) 4 mg PRN Q6HRS PRN IV NAUSEA/VOMITING; Start at 15:00; Stop 12/31/17 at 15:00; Status DC Morphine Sulfate (Morphine Sulfate) 2 mg PRN Q2HR PRN IV MODERATE TO SEVERE PAIN; Start 12/31/17 at 15:00; Stop 01/01/18 at 07:56; Status DC Tramadol HCl (Ultram) 50 mg PRN Q6HRS PRN PO MILD PAIN Last administered on at 21:13; Start 12/31/17 at 15:00; Stop 01/01/18 at 08:12; Status DC Docusate Sodium (Colace) 100 mg PRN DAILY PRN PO CONSTIPATION; Start 12/31/17 at 15:00 Insulin Human Lispro (HumaLOG) 0-9 UNITS TIDWMEALS SQ ; Start 01/01/18 at 12:00 ; Status UNV Dextrose (Dextrose 50%-Water Syringe) 12.5 gm PRN Q15MIN PRN IV SEE COMMENTS; Start 01/01/18 at 08:15; Status UNV Insulin Human Lispro (HumaLOG) 9 units TIDWMEALS SQ ; Start 01/01/18 at 12:00; Status UNV Insulin Human Lispro (HumaLOG) 15 units 1X ONCE SQ ; Start 01/01/18 at 08:15; Stop 01/01/18 at 08:16; Status UNV Active Scripts Active Reported Metformin Hcl 1,000 Mg Tablet 1,000 Mg PO BIDWMEALS Toujeo Max Solostar (Insulin Glargine,Hum.rec.anlog) 300 Unit/1 Ml Insuln.pen 14 Unit SQ QHS Novolog Flexpen (Insulin Aspart) 100 Unit/1 Ml Insuln.pen 9 Unit SQ DAILYBFRSUP Novolog Flexpen (Insulin Aspart) 100 Unit/1 Ml Insuln.pen 4 Unit SQ BIDACBL Vitamin D3 (Cholecalciferol (Vitamin D3)) 5,000 Unit Tablet 1 Tab PO QEVNG Calcium 1,000 + D3 Caplet (Calcium Carbonate/Vitamin D3) 1 Each Tablet 1 Each PO QEVNG Aspirin 81 Mg Tab.chew 1 Tab PO QEVNG Simvastatin 40 Mg Tablet 1 Tab PO QHS Levothyroxine Sodium 75 Mcg Tablet 1 Tab PO DAILY Benazepril Hcl 40 Mg Tablet 1 Tab PO DAILY Amlodipine Besylate 5 Mg Tablet 5 Mg PO DAILY Vitals/I & O Vital Sign - Last 24 Hours 12/31/17 12/31/17 12/31/17 12/31/17 13:01 13:14 13:15 13:15 Temp 97.2 97.2 Pulse 77 84 Resp 16 16 12 B/P (MAP) 141/49 119/52 Pulse Ox 100 100 100 O2 Delivery Simple Mask Simple Mask Mask Simple Mask O2 Flow Rate 10 10.0 10 10 12/31/17 12/31/17 12/31/17 12/31/17 13:30 13:45 14:00 14:15 Temp 97.2 97.2 96.4 97.2 97.2 96.4 Pulse 66 70 68 78 Resp 12 18 12 18 B/P (MAP) 139/56 135/57 112/57 136/51 (79) Pulse Ox 100 98 97 95 O2 Delivery Simple Mask Room Air Room Air Room Air O2 Flow Rate 10 12/31/17 12/31/17 12/31/17 12/31/17 14:30 14:45 15:00 15:15 Temp 96.4 96.4 96.4 96.4 96.4 96.4 96.4 96.4 Pulse 72 73 74 78 Resp 18 18 18 18 B/P (MAP) 145/58 (87) 145/49 (81) 139/49 (79) 134/51 (78) Pulse Ox 96 95 95 97 O2 Delivery Room Air Room Air Room Air Room Air 12/31/17 12/31/17 12/31/17 12/31/17 15:32 15:45 19:00 19:50 Temp 96.4 98.3 96.4 98.3 Pulse 86 66 Resp 18 18 B/P (MAP) 127/55 (79) 119/35 (63) Pulse Ox 97 99 O2 Delivery Room Air Room Air Room Air Room Air 12/31/17 12/31/17 12/31/17 01/01/18 21:13 22:13 23:00 03:00 Temp 98.1 98.6 98.1 98.6 Pulse 82 77 Resp 20 20 18 18 B/P (MAP) 120/50 (73) 98/43 (61) Pulse Ox 95 96 O2 Delivery Room Air Room Air Room Air Room Air 01/01/18 07:05 Temp 98.5 98.5 Pulse 85 Resp 17 B/P (MAP) 96/34 (54) Pulse Ox 96 O2 Delivery Room Air Intake and Output 12/31/17 12/31/17 01/01/18 15:00 23:00 07:00 Intake Total 1370 ml Output Total 25 ml Balance 1345 ml FOX HUSSEIN MD Jan 01, 2018 08:20
[2018-01-01] MEDS: metFORMIN 500 MG TABLET PO SCH ×2 (08:35→17:29)
[2018-01-01] MEDS: DOCUSATE SODIUM 100 MG CAPSULE. PO PRN (08:36)
[2018-01-01] MEDS: LEVOTHYROXINE 75 MCG TABLET PO SCH (08:36)
[2018-01-01] MEDS: LISINOPRIL 20 MG TABLET PO SCH (09:00)
[2018-01-01] MEDS: amLODIPine BESYLATE 5 MG TABLET PO SCH (09:00)
[2018-01-01] MEDS: INSULIN LISPRO 300 UNITS/3 ML INSULN.PEN. SQ SCH ×4 (11:21→17:42)
--- NOTE | 2018-01-01 12:25 | CONS ---
DATE OF CONSULTATION: INTERNAL MEDICINE CONSULT CHIEF COMPLAINT: Postop right lumpectomy and breast cancer. HISTORY OF PRESENT ILLNESS: The patient is a pleasant middle-aged female who underwent a right lumpectomy yesterday. She has also had previous breast cancer on the left. She states she had some sentinel nodes removed as well. We have been requested for postop medical evaluation and treatment of comorbidities. PAST MEDICAL HISTORY: Breast cancer with left mastectomy, right lumpectomy, hypertension, diabetes, hypothyroidism. ALLERGIES: ADHESIVE TAPE. FAMILY HISTORY: Diabetes. SOCIAL HISTORY: She is retired. She does not drink, smoke or take drugs. MEDICATIONS: She is on 11 including simvastatin, amlodipine, benazepril, aspirin, calcium, metformin, insulin, Synthroid and vitamin D. REVIEW OF SYSTEMS: GENERAL: No history of weight change, weakness or fevers. SKIN: No bruising, hair changes or rashes. EYES: No blurred, double or loss of vision. NOSE AND THROAT: No history of nosebleeds, hoarseness or sore throat. HEART: No history of palpitations, chest pain or shortness of breath on exertion. LUNGS: Denies cough, hemoptysis, wheezing or shortness of breath. GASTROINTESTINAL: Denies changes in appetite, nausea, vomiting, diarrhea or constipation. GENITOURINARY: No history of frequency, urgency, hesitancy or nocturia. NEUROLOGIC: Denies history of numbness, tingling, tremor or weakness. PSYCHIATRIC: No history of panic, anxiety or depression. ENDOCRINE: No history of heat or cold intolerance, polyuria or polydipsia. EXTREMITIES: Denies muscle weakness, joint pain, pain on walking or stiffness. MUSCULOSKELETAL: She complains of right chest wall pain. PHYSICAL EXAMINATION: VITAL SIGNS: Temperature is afebrile, pulse 79, respirations 18, blood pressure is 118/45. GENERAL: She is alert, cooperative, little depressed. HEART: Normal S1, S2. LUNGS: Clear. ABDOMEN: Soft. EXTREMITIES: Trace edema. SKIN: No rashes. ENDOCRINE: No thyromegaly. LYMPHATICS: No cervical nodes. HEMATOPOIETIC: No bruising. LABORATORY DATA: Hemoglobin is 11.7. Electrolytes: Sodium 135, potassium 5, chloride 100, bicarbonate 15, BUN 23, creatinine 1.2. Glucose, we just checked it while I was at the bedside is 579. ASSESSMENT AND PLAN: Postop hyperglycemia. I ordered 30 units of insulin subQ NovoLog. I did discuss this with her nurse. I started glipizide 5 p.o. b.i.d. Continue other home medicines, wound care, PT, OT, frequent labs. Thank you very much for allowing us to participate in the care of this nice lady. CRISELDA BRICEÑO DO DR: JAIME/marisel JOB#: [id number] / [id number] FOX Tapia MD
[2018-01-01] MEDS: glipiZIDE 5 MG TABLET PO SCH ×2 (12:54→17:29)
[2018-01-01] MEDS ORDERED: glipiZIDE 5 MG TABLET PO SCH (16:30)
[2018-01-01] MEDS: CHOLECALCIFEROL (VITAMIN D3) 1,000 UNIT TABLET PO SCH (17:30)
[2018-01-01] MEDS: CALCIUM CARB/VIT D3 500/200 TABLET. PO SCH (17:30)
[2018-01-01] MEDS: ASPIRIN CHEWABLE 81 MG TABLET. PO SCH (17:30)
[2018-01-01] MEDS ORDERED: BENZOCAINE/MENTHOL LOZENGE. PO PRN (17:45)
[2018-01-01] MEDS: INSULIN GLARGINE 300 UNITS/3 ML INSULN.PEN. SQ SCH (21:00)
[2018-01-01] MEDS: ATORVASTATIN CALCIUM 20 MG TABLET PO SCH (22:13)
[2018-01-02 03:00] VITALS: BP 112/51
[2018-01-02] MEDS ORDERED: INSULIN LISPRO 300 UNITS/3 ML INSULN.PEN. SQ ONE (05:00)
[2018-01-02] MEDS: LEVOTHYROXINE 75 MCG TABLET PO SCH (05:14)
[2018-01-02 07:00] VITALS: BP 111/53
[2018-01-02] MEDS: DOCUSATE SODIUM 100 MG CAPSULE. PO PRN (08:13)
[2018-01-02] MEDS: metFORMIN 500 MG TABLET PO SCH (08:13)
[2018-01-02] MEDS: amLODIPine BESYLATE 5 MG TABLET PO SCH (08:17)
[2018-01-02] MEDS: LISINOPRIL 20 MG TABLET PO SCH (08:18)
[2018-01-02] MEDS: glipiZIDE 5 MG TABLET PO SCH (08:19)
[2018-01-02] MEDS: INSULIN LISPRO 300 UNITS/3 ML INSULN.PEN. SQ SCH ×4 (08:30→12:22)
--- NOTE | 2018-01-02 09:10 | PDOC ---
PROGRESS NOTES Chief Complaint Chief Complaint Dm2, on insulin, poor control, Rt invasive ductal Ca s/p Right segmental mastectomy and right axillary sentinel lymph node biopsy 12/31 h/o Left BCa s/p lumpectomy, chemo, RT HTN Hypothyroidism chronic left arm lymphedema post left axillary lympectomy obesity, BMI 32 OK to DC History of Present Illness History of Present Illness we are chasing this sugar control, would be ok to DC on home meds, strict diet control and planned exercise at [place] fu with sx, pain control as needed cont home meds pt has onco appt next month Vitals Vitals Vital Signs Date Time Temp Pulse Resp B/P (MAP) Pulse Ox O2 Delivery O2 Flow Rate FiO2 01/02/18 08:18 81 111/53 01/02/18 03:00 98.6 18 98 Room Air 98.6 Physical Exam General: Alert, Oriented X3, Cooperative Heart: Regular rate, Normal S1, Normal S2 Abdomen: Normal bowel sounds, Soft Extremities: No clubbing, No cyanosis Skin: No rashes Labs LABS Laboratory Tests Test 01/01/18 11:04 01/01/18 12:13 01/01/18 14:08 01/01/18 16:48 Glucose (Fingerstick) 579 mg/dL (70-99) 502 mg/dL (70-99) 353 mg/dL (70-99) 198 mg/dL (70-99) Test 01/01/18 20:22 01/01/18 22:12 01/02/18 04:41 01/02/18 06:37 Glucose (Fingerstick) 65 mg/dL (70-99) 157 mg/dL (70-99) 394 mg/dL (70-99) 269 mg/dL (70-99) Test 01/02/18 07:53 Glucose (Fingerstick) 289 mg/dL (70-99) Comment Review of Relevant I have reviewed the following items josephine (where applicable) has been applied. Labs Laboratory Tests Test 12/31/17 13:25 12/31/17 16:53 12/31/17 21:00 01/01/18 06:45 Glucose (Fingerstick) 139 mg/dL (70-99) 179 mg/dL (70-99) 317 mg/dL (70-99) White Blood Count 10.3 x10^3/uL (4.0-11.0) Red Blood Count 3.57 x10^6/uL (3.50-5.40) Hemoglobin 11.7 g/dL (12.0-15.5) Hematocrit 33.8 % (36.0-47.0) Mean Corpuscular Volume 95 fL (79-100) Mean Corpuscular Hemoglobin 33 pg (25-35) Mean Corpuscular Hemoglobin Concent 35 g/dL (31-37) Red Cell Distribution Width 13.0 % (11.5-14.5) Platelet Count 217 x10^3/uL (140-400) Neutrophils (%) (Auto) 81 % (31-73) Lymphocytes (%) (Auto) 10 % (24-48) Monocytes (%) (Auto) 9 % (0-9) Eosinophils (%) (Auto) 0 % (0-3) Basophils (%) (Auto) 0 % (0-3) Neutrophils # (Auto) 8.3 x10^3uL (1.8-7.7) Lymphocytes # (Auto) 1.1 x10^3/uL (1.0-4.8) Monocytes # (Auto) 0.9 x10^3/uL (0.0-1.1) Eosinophils # (Auto) 0.0 x10^3/uL (0.0-0.7) Basophils # (Auto) 0.0 x10^3/uL (0.0-0.2) Sodium Level 135 mmol/L (136-145) Potassium Level 5.0 mmol/L (3.5-5.1) Chloride Level 100 mmol/L (98-107) Carbon Dioxide Level 20 mmol/L (21-32) Anion Gap 15 (6-14) Blood Urea Nitrogen 23 mg/dL (7-20) Creatinine 1.2 mg/dL (0.6-1.0) Estimated GFR (Cockcroft-Gault) 43.8 Glucose Level 484 mg/dL (70-99) Calcium Level 9.2 mg/dL (8.5-10.1) Test 01/01/18 07:09 01/01/18 11:04 01/01/18 12:13 01/01/18 14:08 Glucose (Fingerstick) 423 mg/dL (70-99) 579 mg/dL (70-99) 502 mg/dL (70-99) 353 mg/dL (70-99) Test 01/01/18 16:48 01/01/18 20:22 01/01/18 22:12 01/02/18 04:41 Glucose (Fingerstick) 198 mg/dL (70-99) 65 mg/dL (70-99) 157 mg/dL (70-99) 394 mg/dL (70-99) Test 01/02/18 06:37 01/02/18 07:53 Glucose (Fingerstick) 269 mg/dL (70-99) 289 mg/dL (70-99) Laboratory Tests Test 01/01/18 11:04 01/01/18 12:13 01/01/18 14:08 01/01/18 16:48 Glucose (Fingerstick) 579 mg/dL (70-99) 502 mg/dL (70-99) 353 mg/dL (70-99) 198 mg/dL (70-99) Test 01/01/18 20:22 01/01/18 22:12 01/02/18 04:41 01/02/18 06:37 Glucose (Fingerstick) 65 mg/dL (70-99) 157 mg/dL (70-99) 394 mg/dL (70-99) 269 mg/dL (70-99) Test 01/02/18 07:53 Glucose (Fingerstick) 289 mg/dL (70-99) Medications Current Medications Cefazolin Sodium/ Dextrose 50 ml @ 100 mls/hr 1X PREOP PRN IV PRIOR TO PROCEDURE Last administered on 12/31/17at 11:07; Start 12/31/17 at 06:00; Stop 12/31/17 at 18:00; Status DC Ondansetron HCl (Zofran) 4 mg PRN Q6HRS PRN IV NAUSEA/VOMITING; Start at 07:00; Stop 01/01/18 at 06:59; Status DC Fentanyl Citrate (Fentanyl 2ml Vial) 25 mcg PRN Q5MIN PRN IV MILD PAIN; Start 12/31/17 at 07:00; Stop 01/01/18 at 06:59; Status DC Fentanyl Citrate (Fentanyl 2ml Vial) 50 mcg PRN Q5MIN PRN IV MODERATE TO SEVERE PAIN Last administered on 12/31/17at 13:14; Start 12/31/17 at 07:00; Stop 01/01/18 at 06:59; Status DC Morphine Sulfate (Morphine Sulfate) 1 mg PRN Q10MIN PRN IV SEVERE PAIN; Start 12/31/17 at 07:00; Stop 01/01/18 at 06:59; Status DC Ringer's Solution 1,000 ml @ 30 mls/hr Q24H IV Last administered on at 08:30; Start 12/31/17 at 07:00; Stop 12/31/17 at 18:59; Status DC Lidocaine HCl (Xylocaine-Mpf 1% 2ml Vial) 2 ml PRN 1X PRN ID PRIOR TO IV START ; Start 12/31/17 at 07:00; Stop 01/01/18 at 06:59; Status DC Hydromorphone HCl (Dilaudid) 0.5 mg PRN Q10MIN PRN IV SEV PAIN, Second choice; Start 12/31/17 at 07:00; Stop 01/01/18 at 06:59; Status DC Prochlorperazine Edisylate (Compazine) 5 mg PACU PRN PRN IV NAUSEA, MRX1 Last administered on 12/31/17at 13:19; Start 12/31/17 at 07:00; Stop 01/01/18 at 06 :59; Status DC Lidocaine/Sodium Bicarbonate (Buffered Lidocaine 1%) 3 ml 1X ONCE INJ ; Start 12/31/17 at 08:30; Stop 01/01/18 at 07:56; Status DC Insulin Human Regular (HumuLIN R VIAL) 5 unit 1X ONCE IV ; Start 12/31/17 at 08:45; Stop 12/31/17 at 08:46; Status Cancel Insulin Human Regular (HumuLIN R VIAL) 5 unit 1X ONCE SQ Last administered on 12/31/17at 08:56; Start 12/31/17 at 08:45; Stop 01/01/18 at 07:56; Status DC Isosulfan Blue (Isosulfan Blue) 50 mg STK-MED ONCE SQ Last administered on at 11:35; Start 12/31/17 at 09:10; Stop 01/01/18 at 07:56; Status DC Propofol 20 ml @ As Directed STK-MED ONCE IV ; Start 12/31/17 at 10:41; Stop 01/01/18 at 08:12; Status DC Dexamethasone Sodium Phosphate (Decadron) 20 mg STK-MED ONCE .ROUTE ; Start at 10:41; Stop 01/01/18 at 08:12; Status DC Lidocaine HCl (Lidocaine Pf 2% Vial) 5 ml STK-MED ONCE .ROUTE ; Start 12/31/17 at 10:41; Stop 01/01/18 at 07:56; Status DC Ondansetron HCl (Zofran) 4 mg STK-MED ONCE .ROUTE ; Start 12/31/17 at 10:41; Stop 01/01/18 at 07:56; Status DC Fentanyl Citrate (Fentanyl 2ml Vial) 100 mcg STK-MED ONCE .ROUTE ; Start at 10:41; Stop 01/01/18 at 08:12; Status DC Scopolamine (Transderm-Scop) 1 patch STK-MED ONCE TD ; Start 12/31/17 at 11:10 ; Stop 01/01/18 at 07:56; Status DC Propofol 20 ml @ As Directed STK-MED ONCE IV ; Start 12/31/17 at 11:54; Stop 01/01/18 at 08:12; Status DC Phenylephrine HCl (PHENYLEPHRINE in 0.9% NACL PF) 1 mg STK-MED ONCE IV ; Start 12/31/17 at 11:54; Stop 01/01/18 at 07:56; Status DC Ephedrine Sulfate (ePHEDrine PF IN SALINE SYRINGE) 50 mg STK-MED ONCE IV ; Start 12/31/17 at 11:54; Stop 01/01/18 at 08:12; Status DC Sodium Chloride (Normal Saline Flush) 3 ml QSHIFT PRN IV AFTER MEDS AND BLOOD DRAWS; Start 12/31/17 at 13:00 Sodium Chloride 1,000 ml @ 75 mls/hr [id number] IV ; Start 12/31/17 at 12:56; Stop 01/01/18 at 19:50; Status DC Acetaminophen/ Hydrocodone Bitart (Lortab 5/325) 1 tab PRN Q4HRS PRN PO MODERATE PAIN; Start 12/31/17 at 13:00 Acetaminophen/ Hydrocodone Bitart (Lortab 5/325) 2 tab PRN Q4HRS PRN PO SEVERE PAIN; Start 12/31/17 at 13:00 Morphine Sulfate (Morphine Sulfate) 1 mg PRN Q1HR PRN IV PAIN MILD; Start at 13:00 Ondansetron HCl (Zofran) 4 mg PRN Q6HRS PRN IV NAUESA, 1ST CHOICE; Start 12/31 at 13:00 Amlodipine Besylate (Norvasc) 5 mg DAILY PO Last administered on 01/02/18at 08: 17; Start 01/01/18 at 09:00 Aspirin (Children'S Aspirin) 81 mg QEVNG PO Last administered on 01/01/18at 17: 30; Start 12/31/17 at 18:00 Levothyroxine Sodium (Synthroid) 75 mcg DAILY07 PO Last administered on at 05:14; Start 01/01/18 at 07:00 Lisinopril (Prinivil) 40 mg DAILY PO Last administered on 01/02/18at 08:18; Start 01/01/18 at 09:00 Calcium/Vitamin D (Oscal D 500mg/ 200uts) 2 tab QEVNG PO Last administered on 01/01/18at 17:30; Start 12/31/17 at 18:00 Vitamin D (Vitamin D3) 1,000 unit QEVNG PO Last administered on 01/01/18at 17: 30; Start 12/31/17 at 18:00 Insulin Human Lispro (HumaLOG) 4 units BIDACBL SQ ; Start 12/31/17 at 17:00; Stop 12/31/17 at 17:00; Status DC Insulin Human Lispro (HumaLOG) 9 units DAILYBFRSUP SQ ; Start 12/31/17 at 17:00 ; Stop 12/31/17 at 17:00; Status DC Insulin Glargine (Lantus) 14 units QHS SQ ; Start 12/31/17 at 21:00; Stop at 21:00; Status DC Metformin HCl (Glucophage) 1,000 mg BIDWMEALS PO Last administered on at 08:13; Start 12/31/17 at 17:00 Atorvastatin Calcium (Lipitor) 20 mg QHS PO Last administered on 01/01/18at 22: 13; Start 12/31/17 at 21:00 Fentanyl Citrate (Fentanyl 2ml Vial) 100 mcg STK-MED ONCE .ROUTE ; Start at 13:09; Stop 01/01/18 at 08:12; Status DC Prochlorperazine Edisylate (Compazine) 10 mg STK-MED ONCE .ROUTE ; Start at 13:16; Stop 01/01/18 at 07:56; Status DC Insulin Glargine (Lantus) 10 units QHS SQ Last administered on 12/31/17at 21:15 ; Start 12/31/17 at 21:00; Stop 01/02/18 at 08:58; Status DC Acetaminophen (Tylenol) 650 mg PRN Q6HRS PRN PO FEVER; Start 12/31/17 at 15:00 ; Stop 01/01/18 at 08:12; Status DC Ondansetron HCl (Zofran) 4 mg PRN Q6HRS PRN IV NAUSEA/VOMITING; Start at 15:00; Stop 12/31/17 at 15:00; Status DC Morphine Sulfate (Morphine Sulfate) 2 mg PRN Q2HR PRN IV MODERATE TO SEVERE PAIN; Start 12/31/17 at 15:00; Stop 01/01/18 at 07:56; Status DC Tramadol HCl (Ultram) 50 mg PRN Q6HRS PRN PO MILD PAIN Last administered on at 21:13; Start 12/31/17 at 15:00; Stop 01/01/18 at 08:12; Status DC Docusate Sodium (Colace) 100 mg PRN DAILY PRN PO CONSTIPATION Last administered on 01/02/18at 08:13; Start 12/31/17 at 15:00 Insulin Human Lispro (HumaLOG) 0-9 UNITS TIDWMEALS SQ Last administered on at 08:30; Start 01/01/18 at 12:00 Dextrose (Dextrose 50%-Water Syringe) 12.5 gm PRN Q15MIN PRN IV SEE COMMENTS; Start 01/01/18 at 08:15 Insulin Human Lispro (HumaLOG) 9 units TIDWMEALS SQ Last administered on at 08:31; Start 01/01/18 at 12:00 Insulin Human Lispro (HumaLOG) 15 units 1X ONCE SQ Last administered on at 08:34; Start 01/01/18 at 08:15; Stop 01/01/18 at 08:20; Status DC Insulin Human Lispro (HumaLOG) 30 units 1X ONCE SQ Last administered on at 11:20; Start 01/01/18 at 11:15; Stop 01/01/18 at 11:18; Status DC Glipizide (Glucotrol) 5 mg BIDBFRMEAL PO ; Start 01/01/18 at 16:30; Stop 01/01 at 16:30; Status DC Glipizide (Glucotrol) 5 mg BIDBFRMEAL PO Last administered on 01/02/18at 08:19 ; Start 01/01/18 at 13:00 Insulin Human Lispro (HumaLOG) 20 units 1X ONCE SQ Last administered on at 13:07; Start 01/01/18 at 12:45; Stop 01/01/18 at 12:46; Status DC Insulin Human Lispro (HumaLOG) 25 units 1X ONCE SQ ; Start 01/01/18 at 17:00; Stop 01/01/18 at 17:01; Status DC Throat Lozenges (Cepacol Sore Throat Lozenge) 1 blayne PRN Q2HRS PRN PO SORE THROAT; Start 01/01/18 at 17:45 Insulin Human Lispro (HumaLOG) 9 units 1X ONCE SQ Last administered on at 05:07; Start 01/02/18 at 05:00; Stop 01/02/18 at 05:01; Status DC Insulin Glargine (Lantus) 14 units QHS SQ ; Start 01/02/18 at 21:00 Active Scripts Active Reported Metformin Hcl 1,000 Mg Tablet 1,000 Mg PO BIDWMEALS T[place]e Max Solostar (Insulin Glargine,Hum.rec.anlog) 300 Unit/1 Ml Insuln.pen 14 Unit SQ QHS Novolog Flexpen (Insulin Aspart) 100 Unit/1 Ml Insuln.pen 9 Unit SQ DAILYBFRSUP Novolog Flexpen (Insulin Aspart) 100 Unit/1 Ml Insuln.pen 4 Unit SQ BIDACBL Vitamin D3 (Cholecalciferol (Vitamin D3)) 5,000 Unit Tablet 1 Tab PO QEVNG Calcium 1,000 + D3 Caplet (Calcium Carbonate/Vitamin D3) 1 Each Tablet 1 Each PO QEVNG Aspirin 81 Mg Tab.chew 1 Tab PO QEVNG Simvastatin 40 Mg Tablet 1 Tab PO QHS Levothyroxine Sodium 75 Mcg Tablet 1 Tab PO DAILY Benazepril Hcl 40 Mg Tablet 1 Tab PO DAILY Amlodipine Besylate 5 Mg Tablet 5 Mg PO DAILY Vitals/I & O Vital Sign - Last 24 Hours 01/01/18 01/01/18 01/01/18 01/01/18 11:22 15:31 19:00 20:00 Temp 98.1 97.9 98.6 98.1 97.9 98.6 Pulse 79 82 78 Resp 18 B/P (MAP) 118/45 (69) 120/41 (67) 97/35 (55) Pulse Ox 95 100 99 O2 Delivery Room Air Room Air Room Air Room Air 01/01/18 01/02/18 01/02/18 01/02/18 23:00 03:00 08:17 08:18 Temp 98.5 98.6 98.5 98.6 Pulse 87 90 81 81 Resp 18 B/P (MAP) 115/39 (64) 112/51 (71) 111/53 111/53 Pulse Ox 97 98 O2 Delivery Room Air Room Air Intake and Output 01/01/18 01/01/18 01/02/18 15:00 23:00 07:00 Intake Total 1400 ml 150 ml Balance 1400 ml 150 ml MELBA JAMA MD Jan 02, 2018 09:10
[2018-01-02 11:00] VITALS: BP 117/54
--- NOTE | 2018-01-02 12:50 | PDOC ---
PROGRESS NOTES Subjective Subjective doing well, sugars much improved Objective Objective Vital Signs Date Time Temp Pulse Resp B/P (MAP) Pulse Ox O2 Delivery O2 Flow Rate FiO2 01/02/18 11:00 98.3 79 18 117/54 (75) 96 Room Air 98.3 12/31/17 13:30 10 Intake and Output 01/02/18 07:00 Intake Total 1550 ml Balance 1550 ml Intake Oral 1550 ml # Voids 7 Physical Exam Physical Exam dressings clean Plan Plan of Care Discharge Comment Review of Relevant I have reviewed the following items josephine (where applicable) has been applied. Labs Laboratory Tests Test 12/31/17 13:25 12/31/17 16:53 12/31/17 21:00 01/01/18 06:45 Glucose (Fingerstick) 139 mg/dL (70-99) 179 mg/dL (70-99) 317 mg/dL (70-99) White Blood Count 10.3 x10^3/uL (4.0-11.0) Red Blood Count 3.57 x10^6/uL (3.50-5.40) Hemoglobin 11.7 g/dL (12.0-15.5) Hematocrit 33.8 % (36.0-47.0) Mean Corpuscular Volume 95 fL (79-100) Mean Corpuscular Hemoglobin 33 pg (25-35) Mean Corpuscular Hemoglobin Concent 35 g/dL (31-37) Red Cell Distribution Width 13.0 % (11.5-14.5) Platelet Count 217 x10^3/uL (140-400) Neutrophils (%) (Auto) 81 % (31-73) Lymphocytes (%) (Auto) 10 % (24-48) Monocytes (%) (Auto) 9 % (0-9) Eosinophils (%) (Auto) 0 % (0-3) Basophils (%) (Auto) 0 % (0-3) Neutrophils # (Auto) 8.3 x10^3uL (1.8-7.7) Lymphocytes # (Auto) 1.1 x10^3/uL (1.0-4.8) Monocytes # (Auto) 0.9 x10^3/uL (0.0-1.1) Eosinophils # (Auto) 0.0 x10^3/uL (0.0-0.7) Basophils # (Auto) 0.0 x10^3/uL (0.0-0.2) Sodium Level 135 mmol/L (136-145) Potassium Level 5.0 mmol/L (3.5-5.1) Chloride Level 100 mmol/L (98-107) Carbon Dioxide Level 20 mmol/L (21-32) Anion Gap 15 (6-14) Blood Urea Nitrogen 23 mg/dL (7-20) Creatinine 1.2 mg/dL (0.6-1.0) Estimated GFR (Cockcroft-Gault) 43.8 Glucose Level 484 mg/dL (70-99) Calcium Level 9.2 mg/dL (8.5-10.1) Test 01/01/18 07:09 01/01/18 11:04 01/01/18 12:13 01/01/18 14:08 Glucose (Fingerstick) 423 mg/dL (70-99) 579 mg/dL (70-99) 502 mg/dL (70-99) 353 mg/dL (70-99) Test 01/01/18 16:48 01/01/18 20:22 01/01/18 22:12 01/02/18 04:41 Glucose (Fingerstick) 198 mg/dL (70-99) 65 mg/dL (70-99) 157 mg/dL (70-99) 394 mg/dL (70-99) Test 01/02/18 06:37 01/02/18 07:53 01/02/18 11:20 Glucose (Fingerstick) 269 mg/dL (70-99) 289 mg/dL (70-99) 140 mg/dL (70-99) Laboratory Tests Test 01/01/18 14:08 01/01/18 16:48 01/01/18 20:22 01/01/18 22:12 Glucose (Fingerstick) 353 mg/dL (70-99) 198 mg/dL (70-99) 65 mg/dL (70-99) 157 mg/dL (70-99) Test 01/02/18 04:41 01/02/18 06:37 01/02/18 07:53 01/02/18 11:20 Glucose (Fingerstick) 394 mg/dL (70-99) 269 mg/dL (70-99) 289 mg/dL (70-99) 140 mg/dL (70-99) Medications Current Medications Cefazolin Sodium/ Dextrose 50 ml @ 100 mls/hr 1X PREOP PRN IV PRIOR TO PROCEDURE Last administered on 12/31/17at 11:07; Start 12/31/17 at 06:00; Stop 12/31/17 at 18:00; Status DC Ondansetron HCl (Zofran) 4 mg PRN Q6HRS PRN IV NAUSEA/VOMITING; Start at 07:00; Stop 01/01/18 at 06:59; Status DC Fentanyl Citrate (Fentanyl 2ml Vial) 25 mcg PRN Q5MIN PRN IV MILD PAIN; Start 12/31/17 at 07:00; Stop 01/01/18 at 06:59; Status DC Fentanyl Citrate (Fentanyl 2ml Vial) 50 mcg PRN Q5MIN PRN IV MODERATE TO SEVERE PAIN Last administered on 12/31/17at 13:14; Start 12/31/17 at 07:00; Stop 01/01/18 at 06:59; Status DC Morphine Sulfate (Morphine Sulfate) 1 mg PRN Q10MIN PRN IV SEVERE PAIN; Start 12/31/17 at 07:00; Stop 01/01/18 at 06:59; Status DC Ringer's Solution 1,000 ml @ 30 mls/hr Q24H IV Last administered on at 08:30; Start 12/31/17 at 07:00; Stop 12/31/17 at 18:59; Status DC Lidocaine HCl (Xylocaine-Mpf 1% 2ml Vial) 2 ml PRN 1X PRN ID PRIOR TO IV START ; Start 12/31/17 at 07:00; Stop 01/01/18 at 06:59; Status DC Hydromorphone HCl (Dilaudid) 0.5 mg PRN Q10MIN PRN IV SEV PAIN, Second choice; Start 12/31/17 at 07:00; Stop 01/01/18 at 06:59; Status DC Prochlorperazine Edisylate (Compazine) 5 mg PACU PRN PRN IV NAUSEA, MRX1 Last administered on 12/31/17at 13:19; Start 12/31/17 at 07:00; Stop 01/01/18 at 06 :59; Status DC Lidocaine/Sodium Bicarbonate (Buffered Lidocaine 1%) 3 ml 1X ONCE INJ ; Start 12/31/17 at 08:30; Stop 01/01/18 at 07:56; Status DC Insulin Human Regular (HumuLIN R VIAL) 5 unit 1X ONCE IV ; Start 12/31/17 at 08:45; Stop 12/31/17 at 08:46; Status Cancel Insulin Human Regular (HumuLIN R VIAL) 5 unit 1X ONCE SQ Last administered on 12/31/17at 08:56; Start 12/31/17 at 08:45; Stop 01/01/18 at 07:56; Status DC Isosulfan Blue (Isosulfan Blue) 50 mg STK-MED ONCE SQ Last administered on at 11:35; Start 12/31/17 at 09:10; Stop 01/01/18 at 07:56; Status DC Propofol 20 ml @ As Directed STK-MED ONCE IV ; Start 12/31/17 at 10:41; Stop 01/01/18 at 08:12; Status DC Dexamethasone Sodium Phosphate (Decadron) 20 mg STK-MED ONCE .ROUTE ; Start at 10:41; Stop 01/01/18 at 08:12; Status DC Lidocaine HCl (Lidocaine Pf 2% Vial) 5 ml STK-MED ONCE .ROUTE ; Start 12/31/17 at 10:41; Stop 01/01/18 at 07:56; Status DC Ondansetron HCl (Zofran) 4 mg STK-MED ONCE .ROUTE ; Start 12/31/17 at 10:41; Stop 01/01/18 at 07:56; Status DC Fentanyl Citrate (Fentanyl 2ml Vial) 100 mcg STK-MED ONCE .ROUTE ; Start at 10:41; Stop 01/01/18 at 08:12; Status DC Scopolamine (Transderm-Scop) 1 patch STK-MED ONCE TD ; Start 12/31/17 at 11:10 ; Stop 01/01/18 at 07:56; Status DC Propofol 20 ml @ As Directed STK-MED ONCE IV ; Start 12/31/17 at 11:54; Stop 01/01/18 at 08:12; Status DC Phenylephrine HCl (PHENYLEPHRINE in 0.9% NACL PF) 1 mg STK-MED ONCE IV ; Start 12/31/17 at 11:54; Stop 01/01/18 at 07:56; Status DC Ephedrine Sulfate (ePHEDrine PF IN SALINE SYRINGE) 50 mg STK-MED ONCE IV ; Start 12/31/17 at 11:54; Stop 01/01/18 at 08:12; Status DC Sodium Chloride (Normal Saline Flush) 3 ml QSHIFT PRN IV AFTER MEDS AND BLOOD DRAWS; Start 12/31/17 at 13:00 Sodium Chloride 1,000 ml @ 75 mls/hr [id number] IV ; Start 12/31/17 at 12:56; Stop 01/01/18 at 19:50; Status DC Acetaminophen/ Hydrocodone Bitart (Lortab 5/325) 1 tab PRN Q4HRS PRN PO MODERATE PAIN; Start 12/31/17 at 13:00 Acetaminophen/ Hydrocodone Bitart (Lortab 5/325) 2 tab PRN Q4HRS PRN PO SEVERE PAIN; Start 12/31/17 at 13:00 Morphine Sulfate (Morphine Sulfate) 1 mg PRN Q1HR PRN IV PAIN MILD; Start at 13:00 Ondansetron HCl (Zofran) 4 mg PRN Q6HRS PRN IV NAUESA, 1ST CHOICE; Start 12/31 at 13:00 Amlodipine Besylate (Norvasc) 5 mg DAILY PO Last administered on 01/02/18at 08: 17; Start 01/01/18 at 09:00 Aspirin (Children'S Aspirin) 81 mg QEVNG PO Last administered on 01/01/18at 17: 30; Start 12/31/17 at 18:00 Levothyroxine Sodium (Synthroid) 75 mcg DAILY07 PO Last administered on at 05:14; Start 01/01/18 at 07:00 Lisinopril (Prinivil) 40 mg DAILY PO Last administered on 01/02/18at 08:18; Start 01/01/18 at 09:00 Calcium/Vitamin D (Oscal D 500mg/ 200uts) 2 tab QEVNG PO Last administered on 01/01/18at 17:30; Start 12/31/17 at 18:00 Vitamin D (Vitamin D3) 1,000 unit QEVNG PO Last administered on 01/01/18at 17: 30; Start 12/31/17 at 18:00 Insulin Human Lispro (HumaLOG) 4 units BIDACBL SQ ; Start 12/31/17 at 17:00; Stop 12/31/17 at 17:00; Status DC Insulin Human Lispro (HumaLOG) 9 units DAILYBFRSUP SQ ; Start 12/31/17 at 17:00 ; Stop 12/31/17 at 17:00; Status DC Insulin Glargine (Lantus) 14 units QHS SQ ; Start 12/31/17 at 21:00; Stop at 21:00; Status DC Metformin HCl (Glucophage) 1,000 mg BIDWMEALS PO Last administered on at 08:13; Start 12/31/17 at 17:00 Atorvastatin Calcium (Lipitor) 20 mg QHS PO Last administered on 01/01/18at 22: 13; Start 12/31/17 at 21:00 Fentanyl Citrate (Fentanyl 2ml Vial) 100 mcg STK-MED ONCE .ROUTE ; Start at 13:09; Stop 01/01/18 at 08:12; Status DC Prochlorperazine Edisylate (Compazine) 10 mg STK-MED ONCE .ROUTE ; Start at 13:16; Stop 01/01/18 at 07:56; Status DC Insulin Glargine (Lantus) 10 units QHS SQ Last administered on 12/31/17at 21:15 ; Start 12/31/17 at 21:00; Stop 01/02/18 at 08:58; Status DC Acetaminophen (Tylenol) 650 mg PRN Q6HRS PRN PO FEVER; Start 12/31/17 at 15:00 ; Stop 01/01/18 at 08:12; Status DC Ondansetron HCl (Zofran) 4 mg PRN Q6HRS PRN IV NAUSEA/VOMITING; Start at 15:00; Stop 12/31/17 at 15:00; Status DC Morphine Sulfate (Morphine Sulfate) 2 mg PRN Q2HR PRN IV MODERATE TO SEVERE PAIN; Start 12/31/17 at 15:00; Stop 01/01/18 at 07:56; Status DC Tramadol HCl (Ultram) 50 mg PRN Q6HRS PRN PO MILD PAIN Last administered on at 21:13; Start 12/31/17 at 15:00; Stop 01/01/18 at 08:12; Status DC Docusate Sodium (Colace) 100 mg PRN DAILY PRN PO CONSTIPATION Last administered on 01/02/18at 08:13; Start 12/31/17 at 15:00 Insulin Human Lispro (HumaLOG) 0-9 UNITS TIDWMEALS SQ Last administered on at 08:30; Start 01/01/18 at 12:00 Dextrose (Dextrose 50%-Water Syringe) 12.5 gm PRN Q15MIN PRN IV SEE COMMENTS; Start 01/01/18 at 08:15 Insulin Human Lispro (HumaLOG) 9 units TIDWMEALS SQ Last administered on at 12:22; Start 01/01/18 at 12:00 Insulin Human Lispro (HumaLOG) 15 units 1X ONCE SQ Last administered on at 08:34; Start 01/01/18 at 08:15; Stop 01/01/18 at 08:20; Status DC Insulin Human Lispro (HumaLOG) 30 units 1X ONCE SQ Last administered on at 11:20; Start 01/01/18 at 11:15; Stop 01/01/18 at 11:18; Status DC Glipizide (Glucotrol) 5 mg BIDBFRMEAL PO ; Start 01/01/18 at 16:30; Stop 01/01 at 16:30; Status DC Glipizide (Glucotrol) 5 mg BIDBFRMEAL PO Last administered on 01/02/18at 08:19 ; Start 01/01/18 at 13:00 Insulin Human Lispro (HumaLOG) 20 units 1X ONCE SQ Last administered on at 13:07; Start 01/01/18 at 12:45; Stop 01/01/18 at 12:46; Status DC Insulin Human Lispro (HumaLOG) 25 units 1X ONCE SQ ; Start 01/01/18 at 17:00; Stop 01/01/18 at 17:01; Status DC Throat Lozenges (Cepacol Sore Throat Lozenge) 1 blayne PRN Q2HRS PRN PO SORE THROAT; Start 01/01/18 at 17:45 Insulin Human Lispro (HumaLOG) 9 units 1X ONCE SQ Last administered on at 05:07; Start 01/02/18 at 05:00; Stop 01/02/18 at 05:01; Status DC Insulin Glargine (Lantus) 14 units QHS SQ ; Start 01/02/18 at 21:00 Active Scripts Active Reported Metformin Hcl 1,000 Mg Tablet 1,000 Mg PO BIDWMEALS [place]je[place] Max Solostar (Insulin Glargine,Hum.rec.anlog) 300 Unit/1 Ml Insuln.pen 14 Unit SQ QHS Novolog Flexpen (Insulin Aspart) 100 Unit/1 Ml Insuln.pen 9 Unit SQ DAILYBFRSUP Novolog Flexpen (Insulin Aspart) 100 Unit/1 Ml Insuln.pen 4 Unit SQ BIDACBL Vitamin D3 (Cholecalciferol (Vitamin D3)) 5,000 Unit Tablet 1 Tab PO QEVNG Calcium 1,000 + D3 Caplet (Calcium Carbonate/Vitamin D3) 1 Each Tablet 1 Each PO QEVNG Aspirin 81 Mg Tab.chew 1 Tab PO QEVNG Simvastatin 40 Mg Tablet 1 Tab PO QHS Levothyroxine Sodium 75 Mcg Tablet 1 Tab PO DAILY Benazepril Hcl 40 Mg Tablet 1 Tab PO DAILY Amlodipine Besylate 5 Mg Tablet 5 Mg PO DAILY Vitals/I & O Vital Sign - Last 24 Hours 01/01/18 01/01/18 01/01/18 01/01/18 15:31 19:00 20:00 23:00 Temp 97.9 98.6 98.5 97.9 98.6 98.5 Pulse 82 78 87 Resp 18 18 18 B/P (MAP) 120/41 (67) 97/35 (55) 115/39 (64) Pulse Ox 100 99 97 O2 Delivery Room Air Room Air Room Air Room Air 01/02/18 01/02/18 01/02/18 01/02/18 03:00 07:00 08:17 08:18 Temp 98.6 98.3 98.6 98.3 Pulse 90 81 81 81 Resp 18 18 B/P (MAP) 112/51 (71) 111/53 (72) 111/53 111/53 Pulse Ox 98 95 O2 Delivery Room Air Room Air 01/02/18 11:00 Temp 98.3 98.3 Pulse 79 Resp 18 B/P (MAP) 117/54 (75) Pulse Ox 96 O2 Delivery Room Air Intake and Output 01/01/18 01/01/18 01/02/18 15:00 23:00 07:00 Intake Total 1400 ml 150 ml Balance 1400 ml 150 ml FOX HUSSEIN MD Jan 02, 2018 12:50
--- NOTE | 2018-01-02 12:54 | DISCH ---
DISCHARGE INSTRUCTIONS Condition on Discharge Condition on Discharge: Stable Activity After Discharge Activity Instructions for Disc: Activity as tolerated Diet after Discharge Diet after Discharge: Regular, Diabetic No Calorie Level Wound Incision Care Wound/Incision Care: Other, see below (keep dressings clean and dry) Follow-Up Follow up with: Dr Hussein in 1 week in office, call for appt [phone] FOX HUSSEIN MD Jan 02, 2018 12:54
--- NOTE | 2018-01-02 12:56 | PDOC3 ---
Discharge Summary Visit Information Date of Admission: Dec 31, 2017 Date of Discharge: Jan 02, 2018 Admitting Diagnosis: Breast cancer, diabetes Brief Hospital Course Allergies Allergies Coded Allergies Type Severity Reaction Last Updated Verified adhesive tape Allergy Intermediate BROKE OUT & ITCHING 01/01/18 Yes Vital Signs Vital Signs Date Time Temp Pulse Resp B/P (MAP) Pulse Ox O2 Delivery O2 Flow Rate FiO2 01/02/18 11:00 98.3 79 18 117/54 (75) 96 Room Air 98.3 Lab Results Laboratory Tests Test 12/31/17 13:25 12/31/17 16:53 12/31/17 21:00 01/01/18 06:45 Glucose (Fingerstick) 139 mg/dL (70-99) 179 mg/dL (70-99) 317 mg/dL (70-99) White Blood Count 10.3 x10^3/uL (4.0-11.0) Red Blood Count 3.57 x10^6/uL (3.50-5.40) Hemoglobin 11.7 g/dL (12.0-15.5) Hematocrit 33.8 % (36.0-47.0) Mean Corpuscular Volume 95 fL (79-100) Mean Corpuscular Hemoglobin 33 pg (25-35) Mean Corpuscular Hemoglobin Concent 35 g/dL (31-37) Red Cell Distribution Width 13.0 % (11.5-14.5) Platelet Count 217 x10^3/uL (140-400) Neutrophils (%) (Auto) 81 % (31-73) Lymphocytes (%) (Auto) 10 % (24-48) Monocytes (%) (Auto) 9 % (0-9) Eosinophils (%) (Auto) 0 % (0-3) Basophils (%) (Auto) 0 % (0-3) Neutrophils # (Auto) 8.3 x10^3uL (1.8-7.7) Lymphocytes # (Auto) 1.1 x10^3/uL (1.0-4.8) Monocytes # (Auto) 0.9 x10^3/uL (0.0-1.1) Eosinophils # (Auto) 0.0 x10^3/uL (0.0-0.7) Basophils # (Auto) 0.0 x10^3/uL (0.0-0.2) Sodium Level 135 mmol/L (136-145) Potassium Level 5.0 mmol/L (3.5-5.1) Chloride Level 100 mmol/L (98-107) Carbon Dioxide Level 20 mmol/L (21-32) Anion Gap 15 (6-14) Blood Urea Nitrogen 23 mg/dL (7-20) Creatinine 1.2 mg/dL (0.6-1.0) Estimated GFR (Cockcroft-Gault) 43.8 Glucose Level 484 mg/dL (70-99) Calcium Level 9.2 mg/dL (8.5-10.1) Test 01/01/18 07:09 01/01/18 11:04 01/01/18 12:13 01/01/18 14:08 Glucose (Fingerstick) 423 mg/dL (70-99) 579 mg/dL (70-99) 502 mg/dL (70-99) 353 mg/dL (70-99) Test 01/01/18 16:48 01/01/18 20:22 01/01/18 22:12 01/02/18 04:41 Glucose (Fingerstick) 198 mg/dL (70-99) 65 mg/dL (70-99) 157 mg/dL (70-99) 394 mg/dL (70-99) Test 01/02/18 06:37 01/02/18 07:53 01/02/18 11:20 Glucose (Fingerstick) 269 mg/dL (70-99) 289 mg/dL (70-99) 140 mg/dL (70-99) Laboratory Tests Test 01/01/18 14:08 01/01/18 16:48 01/01/18 20:22 01/01/18 22:12 Glucose (Fingerstick) 353 mg/dL (70-99) 198 mg/dL (70-99) 65 mg/dL (70-99) 157 mg/dL (70-99) Test 01/02/18 04:41 01/02/18 06:37 01/02/18 07:53 01/02/18 11:20 Glucose (Fingerstick) 394 mg/dL (70-99) 269 mg/dL (70-99) 289 mg/dL (70-99) 140 mg/dL (70-99) Brief Hospital Course Ms. Espinosa is a 77 old female who presented with right breast cancer. She underwent a right segmental mastectomy with sentinel lymph node biopsy. On POD 1 she appeared well, but her sugars were over 400. Internal Medicine was consulted, and by POD 2 her sugars had improved and she appeared stable for discharge. Discharge Information Condition at Discharge: Stable Follow Up: Weeks (1 week) Disposition/Orders: D/C to Home Scheduled Amlodipine Besylate (Amlodipine Besylate) 5 Mg Tablet, 5 MG PO DAILY, (Reported) Entered as Reported by: CHUN REYNOLDS on 12/30/17 1159 Last Taken: Unknown Dose on 12/31/17 0600 Last Action: Continued on 12/31 1300 by FOX HUSSEIN Aspirin (Aspirin) 81 Mg Tab.chew, 1 TAB PO QEVNG, #30 Ref 3 (Reported) Entered as Reported by: CHUN REYNOLDS on 12/30/17 1201 Last Taken: Unknown Dose on 12/27/17 Last Action: Continued on 12/31/17 1300 by FOX HUSSEIN Benazepril Hcl (Benazepril Hcl) 40 Mg Tablet, 1 TAB PO DAILY, #30 Ref 5 ( Reported) Entered as Reported by: CHUN REYNOLDS on 12/30/17 1200 Last Taken: Unknown Dose on 12/30/17 Last Action: Converted on 12/31/17 1300 by FOX HUSSEIN Calcium Carbonate/Vitamin D3 (Calcium 1,000 + D3 Caplet) 1 Each Tablet, 1 EACH PO QEVNG, (Reported) Entered as Reported by: CHUN REYNOLDS on 12/30/17 1203 Last Taken: Unknown Dose on 12/30/17 Last Action: Converted on 12/31/17 1300 by FOX HUSSEIN Cholecalciferol (Vitamin D3) (Vitamin D3) 5,000 Unit Tablet, 1 TAB PO QEVNG, #30 (Reported) Entered as Reported by: CHUN REYNOLDS on 12/30/17 1203 Last Taken: Unknown Dose on 12/30/17 Last Action: Converted on 12/31/17 1300 by FOX HUSSEIN Insulin Aspart (Novolog Flexpen) 100 Unit/1 Ml Insuln.pen, 4 UNIT SQ BIDACBL, ( Reported) Entered as Reported by: CHUN REYNOLDS on 12/30/17 1204 Last Taken: Unknown Dose on 12/30/17 Last Action: Converted on 12/31/17 1300 by FOX HUSSEIN Insulin Aspart (Novolog Flexpen) 100 Unit/1 Ml Insuln.pen, 9 UNIT SQ DAILYBFRSUP , (Reported) Entered as Reported by: CHUN REYNOLDS on 12/30/17 1205 Last Taken: Unknown Dose on 12/30/17 Last Action: Converted on 12/31/17 1300 by FOX HUSSEIN Insulin Glargine,Hum.rec.anlog (Toujeo Max Solostar) 300 Unit/1 Ml Insuln.pen, 14 UNIT SQ QHS, (Reported) Entered as Reported by: CHUN REYNOLDS on 12/30/17 1206 Last Taken: Unknown Dose on 12/30/17 Last Action: Converted on 12/31/17 1300 by FOX HUSSEIN Levothyroxine Sodium (Levothyroxine Sodium) 75 Mcg Tablet, 1 TAB PO DAILY, #30 Ref 5 (Reported) Entered as Reported by: CHUN REYNOLDS on 12/30/17 1200 Last Taken: Unknown Dose on 12/31/17 0600 Last Action: Continued on 12/31 1300 by FOX HUSSEIN Metformin Hcl (Metformin Hcl) 1,000 Mg Tablet, 1,000 MG PO BIDWMEALS, (Reported) Entered as Reported by: CHUN REYNOLDS on 12/30/17 1206 Last Taken: Unknown Dose on 12/30/17 Last Action: Converted on 12/31/17 1300 by FOX HUSSEIN Simvastatin (Simvastatin) 40 Mg Tablet, 1 TAB PO QHS, #30 Ref 5 (Reported) Entered as Reported by: CHUN REYNOLDS on 12/30/17 1201 Last Taken: Unknown Dose on 12/30/17 Last Action: Converted on 12/31/17 1300 by FOX RUSSO MD Jan 02, 2018 12:56
[2018-01-02] MEDS ORDERED: INSULIN GLARGINE 300 UNITS/3 ML INSULN.PEN. SQ SCH (21:00)
--- NOTE | 2018-01-08 17:08 | PATHOLOGY ---
[facility] Accession Number: [id number] . 01 Material submitted: . PART A: SENTINEL NODE #1 PART B: SENTINEL LYMPH NODE #2 FROZEN PART C: LUMPECTOMY SHORT STITCH SUPERFICIAL, LONG STITCH LATERAL PART D: ADDITIONAL INFERIOR MARGIN, RIGHT BREAST PART E: ADDITIONAL LATERAL MARGIN, RIGHT BREAST PART F: ADDITIONAL SUPERIOR MARGIN, RIGHT BREAST . 01 Clinical history: . Right breast cancer . 02 Diagnosis: A. Lymph node, sentinel node #1 blue not hot: - Negative for tumor. . B. Lymph node, sentinel lymph node #2: - Negative for tumor. . C. Breast tissue, wire localized right breast lumpectomy: - INVASIVE DUCTAL CARCINOMA, HISTOLOGIC GRADE I-II, FORMING A STELLATE TUMOR MASS MEASURING 0.9 CM IN GREATEST DIMENSIONS. 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 - INVASIVE CARCINOMA IS APPROXIMATELY 0.4 CM FROM THE CLOSEST ANTERIOR AND POSTERIOR MARGINS OF RESECTION. - Sclerosing adenosis, focal. . D. Breast and fibroadipose tissue, additional inferior margin: - Negative for tumor. . E. Breast tissue, additional lateral margin: - Negative for tumor. - Proliferative fibrocystic changes with focal florid ductal epithelial hyperplasia. . F. Breast and fibroadipose tissue, additional superior margin: - Negative for tumor. - Fibrocystic changes, focal. . . . . SYNOPTIC REPORT Surgical Pathology Cancer Case Summary . INVASIVE CARCINOMA OF THE BREAST: . . Procedure Other (specify): Wire-localized lumpectomy . Specimen Laterality Right . + Tumor Site: Invasive Carcinoma + Not specified . Tumor Size Greatest dimension of largest invasive focus >1 mm (specify exact measurement) (millimeters): 9 mm . Histologic Type Invasive carcinoma of no special type (ductal, not otherwise specified) . Histologic Grade (Thorp Histologic Score) . Glandular (Acinar)/Tubular Differentiation Score 2 (10% to 75% of tumor area forming glandular/tubular structures) . Nuclear Pleomorphism Score 2 (cells larger than normal with open vesicular nuclei, visible nucleoli, and moderate variability in both size and shape) . Mitotic Rate Score 1 (=3 mitoses per mm2) (see Table 1) . Overall Grade Grade 1 (scores of 3, 4, or 5) . + Tumor Focality + Single focus of invasive carcinoma . Ductal Carcinoma In Situ (DCIS) Present + Negative for extensive intraductal component (EIC) . + Architectural Patterns + Cribriform + Solid . + Nuclear Grade + Grade II (intermediate) . + Necrosis + Not identified . + Lobular Carcinoma In Situ (LCIS) + No LCIS in specimen . Margins . Invasive Carcinoma Margins Uninvolved by invasive carcinoma Distance from closest margin (millimeters): 3 mm Specify closest margin: Anterior and posterior margins . DCIS Margins Uninvolved by DCIS . Regional Lymph Nodes . Uninvolved by tumor cells Number of Dwarf Nodes Examined: 2 . Treatment Effect No known presurgical therapy . + Lymphovascular Invasion + Not identified . Pathologic Stage Classification (pTNM, AJCC 8th Edition) . Primary Tumor (Invasive Carcinoma) (pT) pT1b:Tumor >5 mm but =10 mm in greatest dimension . . Regional Lymph Nodes (pN) . Modifier (sn):Dwarf node(s) evaluated. . . Category (pN) pN0:No regional lymph node metastasis identified or ITCs only# . . + Additional Pathologic Findings + Specify: Fibrocystic changes and sclerosing adenosis . . + Microcalcifications + Present in invasive carcinoma . . + Clinical History + The current clinical/radiologic breast findings for which this surgery is performed include: + Radiologic finding + Mass or architectural distortion . (JPM:mml; 01/08/18) [facility]/01/08/2018 . 02 Comment: There are two sentinel lymph nodes which are examined t multiple levels. Immunoperoxidase stains for AE1/AE3 are also obtained on these sentinel lymph nodes and yield the following results: . AE1/AE3 (A1): Negative for tumor. AE1/AE3 (B1): Negative for tumor. AE1/AE3 (B2): Negative for tumor. . (JPM:pit 01/07/2018) . Special stains performed: AE1/AE3 on A1, B1, and B2. . 02 Electronically signed: . Tom Betancourt MD, Pathologist NPI- [id number] . 01 Gross description: . A. Received fresh for intraoperative consultation labeled, "sentinel node 1 blue not hot". This consists of a segment of yellow fatty tissue measuring 2.4 x 1.4 cm. Sectioning reveals a yellow-lainez partially fatty lymph node showing focal bluish discoloration and measuring 1.3 cm in greatest dimension. This is submitted in entirety for frozen section as FSA1. The tissue remaining from frozen section is submitted for permanent sections as A1. . B. The specimen is received fresh for intraoperative consultation and is designated, "sentinel lymph node 2". This consists of an ovoid-shaped segment of yellow-red fatty tissue measuring 3.1 x 2.5 cm. Sectioning reveals a yellow-lainez partially fatty lymph node measuring up to 2.7 cm in greatest dimension. One-half of the lymph node is submitted for frozen section as FSB1. The tissue remaining from frozen section is submitted for permanent sections as B1. The remainder of the lymph node is submitted for microscopy as B2. (JPM:juan a; 12/31/2017) . C. The specimen is received in formalin, labeled "Malika Espinosa, lumpectomy short stitch superficial long stitch lateral" and consists of a 58 g oriented breast lumpectomy specimen. A long stitch designates lateral and a short stitch superficial. Protruding from the superficial aspect is a metal localization wire. The biopsy marker site is at E-F/9-10 and this site is inked black. The specimen measures 9.0 cm S-I, 5.4 cm L-M, 2.8 cm A-P and inked as follows: Anterior-orange, posterior-black, medial-red, superior-blue, inferior-green, and lateral-yellow. It is sectioned from superior to inferior revealing a stellate solid nodule measuring 0.9 x 0.8 cm. The mass extends from the margins as follows: 0.3 cm anterior, 0.6 cm posterior, 0.8 cm lateral, 2.1 cm medial, and greater than 3 cm from both superior and inferior. The remainder of the parenchyma consists of yellow adipose tissue and minimal (less than 5%) dense fibrous streaks and no additional masses or lesions. The specimen was obtained at 12:17 PM on 12/31/17 with no time in formalin provided. The cold ischemic time is unknown and the total formalin fixation time is greater than 6 hours but less than 72 hours. Morphology Teacher sections are submitted as follows: . C1: Superior, perpendicular C2-C5: Entire mass (bisected into L-M halves) C6-C8: Slice inferior to mass (trisected) C9-C11: Slice superior to mass (trisected) C12: Inferior, perpendicular (SDY; 12/31/2017) . D. The specimen is received in formalin, labeled "Espinosa, Malika, additional inferior margin" and consists of a 5 g segment of yellow adipose tissue measuring 4.0 x 1.8 x 1.1 cm. It is inked black and serially sectioned to reveal no gross lesions. The specimen is entirely submitted in D1-D4. . E. The specimen is received in formalin, labeled "Espinosa, Malika, additional lateral margin" and consists of a 7 g segment of yellow fibroadipose tissue measuring 5.7 x 2.6 x 1.1 cm. It is inked black and sectioned to reveal no gross lesions. The specimen is entirely submitted in E1-E6. . F. The specimen is received in formalin, labeled "Espinosa, Malika, additional superior margin" and consists of a 4 g segment of yellow-orange adipose tissue measuring 5.8 x 2.0 x 1.0 cm. It is inked black and sectioned to reveal no gross lesions. The specimen is entirely submitted in F1-F5. (SDY; 01/01/2018) . . INTRAOPERATIVE CONSULTATION WITH FROZEN SECTION: (Tom Betancourt M.D.) . A. Dwarf node 1 blue not hot: - Negative for tumor. . The results are reported to Dr. Curtis in the Operating Room. . B. Dwarf lymph node 2: - Negative for tumor. . The results are reported to Dr. Curtis in the Operating Room. . . Frozen section performed at [facility], [address] [place] [id number]. SYU/QMS . 02 Pathologist provided ICD-10: C50.911, D05.11, N60.11, N62, N60.21 . 02 CPT . 950780, 306605, 395944, 913635, 490850, 988765, 209600, 572724, C92131 Specimen Comment: A courtesy copy of this report has been sent to Specimen Comment: [phone]. Specimen Comment: Report sent to Performed at: [address] [facility] [address], [place] [id number] MD Kel Bernardo MD Phone: [phone] Performed at: 02 [facility] [address] [place], [place] [id number] MD Tom Betancourt MD Phone: [phone]
== END 2018-01-02 15:30 | disposition home or self-care (01) ==
LOC: SURG 07:33 → 4 NORTH 12:56
PROVIDERS: ADMIT Surgery; ATTEND Surgery
DX: C50.911 Malignant neoplasm of unspecified site of right female breast (principal); E03.9 Hypothyroidism, unspecified; E11.65 Type 2 diabetes mellitus with hyperglycemia; E66.01 Morbid (severe) obesity due to excess calories; I10 Essential (primary) hypertension; I89.0 Lymphedema, not elsewhere classified; Z68.32 Body mass index [BMI] 32.0-32.9, adult; Z79.4 Long term (current) use of insulin; Z83.3 Family history of diabetes mellitus; Z90.12 Acquired absence of left breast and nipple
CPT/HCPCS: 19301; 36415; 38525; 38792; 76098; 76942; 77065; 80048; 82962; 85025; 96372; 97161; A9541; G0378; G0379; J0690; J0780; J1100; J1815; J2001; J2370; J2704; J3010; Q9968; 19083; 88305; 88307; 88331; 88342; 96374; J2405

== ENCOUNTER → 2018-01-21 | Outpatient (CLI) | payer MEDICARE ==
[2018-01-02 11:00] VITALS: BP 117/54
[~2018-01-21] MED LIST changes: -HYDROmorphone 2 MG/ML VIAL IV PRN; -IV RINGERS,LACTATED 1000ML 1,000 ML IV SCH; -LIDOCAINE 1% PF 2 ML VIAL. ID PRN; -MORPHINE SULFATE 2 MG/ML VIAL. IV PRN; -ONDANSETRON PF 4 MG/2 ML VIAL. IV PRN; -PROCHLORPERAZINE 10 MG/2 ML VIAL. IV PRN; -fentaNYL PF VIAL 100 MCG/2 ML VIAL IV PRN
--- NOTE | 2018-01-21 12:19 | KCIC ---
Bone mineral density study dated 01/21/2018. Indication: Postmenopausal screening. Findings: Lower lumbar spine: BMD (g/cm2): Total L1-L4.......... 0.996. . T-Score: Total L1-L4.................... -0.5. Z-Score: Total L1-L4 ................... 1.9. Left Hip: BMD (g/cm2): Total .......... 0.748. . T-Score: Total .................... -1.6. Z-Score: Total ................... 0.2. World Health Organization criteria for BMD interpretation classify patients as Normal (T-score at or above -1.0), Osteopenic (T-score between -1.0 and -2.5), or Osteoporotic (T-score at or below -2.5). Impression: 1. Bone mineral density values of the left femur correlate with osteopenia. 2. Density values of the lumbar spine are within the range of normal but could be falsely elevated due to advanced degenerative change. Electronically signed by: Ton Flowers MD (01/21/2018 12:15 PM) [facility]
== END | disposition home or self-care (01) ==
LOC: KCIC DEXA 11:26
PROVIDERS: ATTEND Internal Medicine Hematology & Oncology
DX: C50.311 Malignant neoplasm of lower-inner quadrant of right female breast (principal); Z17.0 Estrogen receptor positive status [ER+]; Z79.811 Long term (current) use of aromatase inhibitors
CPT/HCPCS: 77080